=== PATIENT | male | born 1940 | race Caucasian/White ===

== ENCOUNTER 2016-11-07 21:59 | Inpatient (IN) | payer MEDICAID, MEDICARE ==
--- NOTE | 2016-11-07 22:12 | ED Physician Chart ---
Chief Complaint/HPI - Patient Information Date Seen:: 11/07/16 Time Seen:: 22:00 Chief Complaint:: increased agitation and confusion History of Present Illness:: Patient has been exhibiting increased agitation and increased confusion and his [facility] nursing facility. Allergies:: Allergies Allergy/AdvReac Type Severity Reaction Status Date / Time No Known Allergies Allergy Verified 12/15/15 21:43 Historian:: EMS Review:: Nurse's Note Reviewed, Transfer documents Reviewed Review of Systems - Review of Systems General/Constitutional: No fever, No chills Skin: No skin lesions Head: No headache Eyes: No loss of vision ENT: No earache Neck: No neck pain, No swelling Cardio Vascular: No chest pain, No palpitations Pulmonary: No SOB GI: No nausea, No vomiting, No diarrhea G/U: No dysuria Musculoskeletal: No bone or joint pain Endocrine: No polyuria, No polydipsia Psychiatric: Prior psych history Hematopoietic: No bruising Allergic/Immuno: No urticaria Neurological: No syncope, No headache Past Medical History - Past Medical History Past Medical History: DM, Dyslipidemia, PUD/GERD, Other (benign prostatic hypertrophy; anicteric renal disease; glaucoma; hypercholesterolemia; ecchymosis ; arthritis; status post urinary tract infection; status post prostatitis; dementia; Alzheimer's disease; right above-knee amputation; status post pneumonia) Family History: Other (unavailable) Social History: Care Facility Surgical History: other (right above-knee amputation) Psychiatricy History: Dementia, Other (Alzheimer's disease) Medication: Reviewed Family Medical History - Family Member Mother History Unknown: Yes Ethnicity: Unknown Living Status: Unknown Hx Family Cancer: No Hx Family Coronary Artery Disease: No Hx Family Congestive Heart Failure: No Hx Family Hypertension: No Hx Family Stroke: No Hx Family Diabetes: No Hx Family Seizures: No Hx Family Dementia: No Hx Family AIDS: No Hx Family HIV: No Hx Family COPD: No Hx Family Hepatitis: No Hx Family Psychiatric Problems: No Hx Family Tuberculosis: No Physical Exam - Physical Examination General/Constitutional: Alert Other Gen/Cons comments:: Chronically ill-appearing Head: Atraumatic Eyes: Lids, conjuctiva normal, PERRL Skin: Nl inspection ENMT: External ears, nose nl, TM canals nl, Nasal exam nl Other ENMT comments:: Edentulous Neck: No nuchal rigidity, No bruit Respiratory: Nl effort/Exclusion, Clear to Auscultation, No Wheeze/Rhonchi/Rales Cardio Vascular: RRR GI: No tenderness/rebounding/guarding Extremities: Normal digits & nails Other Extremities comments:: Right above-knee amputation Other Neuro/Psych comments:: Drooping right corner of mouth Misc: Normal back Labs/Radiology/EKG Results - EKG Interpretations Rate & Rhythm: normal sinus rhythm with a rate of 88 [place]: normal Comments:: Low voltage ED Septic Shock - . Is Septic Shock (SBP<90, OR Lactate>4 mmol\L) present?: No Reassessment (Disposition) - Reassessment Reassessment Condition:: Unchanged - Diagnosis Diagnosis:: Dementia with agitation - Patient Disposition Admitted to:: [facility] Admitting Medical Physician:: Stephane Hanley Admitting Psych Physician:: Emily Urena Condition at Disposition:: Stable, Unchanged
[2016-11-07 22:21] LABS: % BASOPHILS 1.6 % (0.0-2.0); % EOSINOPHILS 2.2 % (0.0-5.0); % LYMPHOCYTES 16.1 % (20.0-50.0); % MONOCYTES 3.4 % (2.0-10.0); % NEUTROPHILS 76.7 % (40.0-80.0); HEMATOCRIT 38.3 % (39.0-49.0); HEMOGLOBIN 12.8 gm/dL (12.6-17.4); MEAN CELL VOLUME 84.1 fl (80-99); MEAN CORPUSCULAR HEMOGLOBIN 28.1 pg (27.0-31.0); MEAN CORPUSCULAR HGB CONC 33.5 pg (28.0-36.0); MEAN PLATELET VOLUME 8.4 fl; NEUTROPHILE ABSOLUTE 7.6 Th/cmm (1.8-8.0); RED BLOOD COUNT 4.56 Mil/cmm (3.80-5.80); WHITE BLOOD COUNT 9.9 Th/cmm (4.8-10.8)
[2016-11-07 22:39] LABS: ALKALINE PHOSPHATASE 83 U/L (34-104); ANION GAP 11.4 (7.0-16.0); BILIRUBIN,TOTAL 0.3 mg/dL (0.3-1.0); BUN - UREA NITROGEN 33 mg/dL (7-25); BUN/CREATININE RATIO 23.6; CALCIUM SERUM 9.7 mg/dL (8.6-10.3); CARBON DIOXIDE 24.7 mEq/L (21.0-31.0); CHLORIDE 104 mEq/L (98-107); CHOLESTEROL 125 mg/dL (<200); CREATININE - SERUM 1.4 mg/dL (0.7-1.3); GLUCOSE 133 mg/dL (70-105); POTASSIUM SERUM 4.1 mEq/L (3.5-5.1); SGOT 18 U/L (13-39); SGPT/ALT 16 U/L (7-52); SODIUM SERUM 136 mEq/L (136-145); TRIGLYCERIDES 174 mg/dL (<150)
[2016-11-07 22:43] LABS: PLATELET COUNT 224 Th/cmm (150-400)
[2016-11-08 01:11] VITALS: BP 135/77
[2016-11-08] MEDS ORDERED: Magnesium Hydroxide (MOM) 30 mL UDC PO PRN (01:14)
[2016-11-08] MEDS ORDERED: Fleet Enema 135 mL RC PRN (01:14)
[2016-11-08] MEDS: INSULIN ASPART SLIDING SCALE 100 UNITS/ML UNIT SUBQ SCH ×4 (06:37→20:45)
[2016-11-08] MEDS: Aspirin 325 mg EC PO SCH (08:11)
[2016-11-08] MEDS: Multivitamin w/ Minerals Tab PO SCH (08:11)
[2016-11-08] MEDS: Insulin Detemir 100 units/mL 10mL Vial SUBQ SCH (08:12)
--- NOTE | 2016-11-08 10:45 | Psychosocial Evaluation ---
DATE OF SERVICE: 11/07/2016 IDENTIFYING DATA: The patient is a 76-year-old male, resident of [facility]. Information obtained by directly interviewing the patient as well as reviewing the admission papers, disposition in hospitalization. The patient is admitted here on a voluntary basis in view of his acute agitation, confusion and aggressive behavior. HISTORY OF PRESENT ILLNESS: This is the first psychiatric hospitalization to this hospital. The patient is reported to have been at [place] and has been having deterioration in the care. The patient is reported to have been getting easily agitated. The patient even in here is trying to get out of the bed and has been getting easily agitated when the staff are trying to help him. The patient has been diagnosed to have multiple medical problems such as osteoarthritis and muscle weakness, dysphagia, urinary tract infection and spastic hemiplegia and patient at this time has not been able to contract for safety. The patient also has a history of diabetes mellitus and essential hypertension and ____ affect. The patient at this time is presenting with aggressive behavior. PAST PSYCHIATRIC HISTORY: Please refer to the above. MEDICAL HISTORY: Physical examination is requested by Dr. Hanley. SUBSTANCE ABUSE HISTORY: None. PHYSICAL OR SEXUAL ABUSE HISTORY: None. LEGAL PROBLEMS: None at this time. STRENGTH AND ASSETS: The patient is motivated. MENTAL STATUS EXAMINATION: The patient is a 76-year-old, looking his stated age, superficially cooperative. Eye contact is poor. Mood is noted to be irritable. Affect is constricted. Insight and judgment at this time are noted to be very much impaired. Impulse control seems to be poor. Coping skills are noted to be poor. The patient has been having difficult time to cope with the stress. The patient has been getting easily agitated and trying to sleep out of the bed and patient is getting easily agitated with the staff when they are trying to help him to re-position. The patient is paranoid at this time, but denies any command hallucinations. Insight and judgment at this time are noted to be very much impaired. Impulse control seems to be limited. The patient has short and prison memory deficit. Attention span and concentration are noted to be poor at this time. The patient's behavior is strictly a danger to self and others. DIAGNOSTIC IMPRESSION: AXIS I: 1. Psychotic disorder, not otherwise specified. 2. Dementia and behavioral change, secondary trait. AXIS II: None. AXIS III: As per Dr. Hanley. IMMEDIATE TREATMENT PLAN: The patient is going to be observed on inpatient unit, provided with supportive therapy and the patient is going to be closely monitored. Once stabilized, the patient is going to be discharged to self to be followed up on an outpatient basis. JOB# [id number]
--- NOTE | 2016-11-08 10:45 | Internal Medicine Prog Note ---
Internal Medicine Subjective - Subjective Service Date: 11/08/16 ([id number]) Internal Medicine Objective - Results Result Diagrams: 11/07/16 22:13 11/07/16 22:13 Recent Labs: Laboratory Last Values WBC 9.9 Th/cmm (4.8-10.8) 11/07/16 22:13 RBC 4.56 Mil/cmm (3.80-5.80) 11/07/16 22:13 Hgb 12.8 gm/dL (12.6-17.4) 11/07/16 22:13 Hct 38.3 % (39.0-49.0) L 11/07/16 22:13 MCV 84.1 fl (80-99) 11/07/16 22:13 MCH 28.1 pg (27.0-31.0) 11/07/16 22:13 MCHC Differential 33.5 pg (28.0-36.0) 11/07/16 22:13 RDW 13.0 % (11.5-20.0) 11/07/16 22:13 Plt Count 224 Th/cmm (150-400) D 11/07/16 22:13 MPV 8.4 fl 11/07/16 22:13 Neutrophils % 76.7 % (40.0-80.0) 11/07/16 22:13 Lymphocytes % 16.1 % (20.0-50.0) L 11/07/16 22:13 Monocytes % 3.4 % (2.0-10.0) 11/07/16 22:13 Eosinophils % 2.2 % (0.0-5.0) 11/07/16 22:13 Basophils % 1.6 % (0.0-2.0) 11/07/16 22:13 Sodium 136 mEq/L (136-145) 11/07/16 22:13 Potassium 4.1 mEq/L (3.5-5.1) 11/07/16 22:13 Chloride 104 mEq/L (98-107) 11/07/16 22:13 Carbon Dioxide 24.7 mEq/L (21.0-31.0) 11/07/16 22:13 Anion Gap 11.4 (7.0-16.0) 11/07/16 22:13 BUN 33 mg/dL (7-25) H 11/07/16 22:13 Creatinine 1.4 mg/dL (0.7-1.3) H 11/07/16 22:13 Est GFR ( Amer) TNP 11/07/16 22:13 Est GFR (Non-Af Amer) TNP 11/07/16 22:13 BUN/Creatinine Ratio 23.6 11/07/16 22:13 Glucose 133 mg/dL (70-105) H 11/07/16 22:13 Calcium 9.7 mg/dL (8.6-10.3) 11/07/16 22:13 Total Bilirubin 0.3 mg/dL (0.3-1.0) 11/07/16 22:13 AST 18 U/L (13-39) 11/07/16 22:13 ALT 16 U/L (7-52) 11/07/16 22:13 Alkaline Phosphatase 83 U/L (34-104) 11/07/16 22:13 Total Protein 7.8 gm/dL (6.0-8.3) 11/07/16 22:13 Albumin 3.9 gm/dL (4.2-5.5) L 11/07/16 22:13 Globulin 3.9 gm/dL 11/07/16 22:13 Albumin/Globulin Ratio 1.0 (1.0-1.8) 11/07/16 22:13 Triglycerides 174 mg/dL (<150) H 11/07/16 22:13 Cholesterol 125 mg/dL (<200) 11/07/16 22:13 LDL Cholesterol Direct 67 mg/dL (75-193) L 11/07/16 22:13 HDL Cholesterol 36 mg/dL (23-92) 11/07/16 22:13 TSH 1.54 uIU/ml (0.34-5.60) 11/07/16 22:13 - Physical Exam Vitals and I&O: Vital Signs Temp 97.8 F 11/08/16 06:55 Pulse 75 11/08/16 06:55 Resp 20 11/08/16 06:55 BP 131/75 11/08/16 08:11 Pulse Ox 98 11/08/16 06:55 Intake & Output 11/07/16 11/08/16 11/08/16 18:59 06:59 18:59 Intake Total 120 Balance 120 Intake: Oral 120 Other: # Voids 3 Active Medications: Current Medications Acetaminophen (Tylenol) 650 mg PO Q4HR PRN PRN Reason: Pain or Fever >101 Stop: 01/07/17 01:13 Aspirin (Ecotrin) 325 mg PO DAILY [facility] Stop: 01/07/17 08:59 Last Admin: 11/08/16 08:11 Dose: 325 mg Bisacodyl (Dulcolax 10 Mg Supp) 10 mg RC DAILY PRN PRN Reason: Constipation Stop: 01/07/17 08:59 Docusate Sodium (Colace) 100 mg PO DAILY [facility] Stop: 01/07/17 08:59 Last Admin: 11/08/16 08:11 Dose: 100 mg Famotidine (Pepcid) 20 mg PO DAILY [facility] Stop: 01/07/17 08:59 Last Admin: 11/08/16 08:11 Dose: 20 mg Furosemide (Lasix) 40 mg PO DAILY [facility] Stop: 01/07/17 08:59 Last Admin: 11/08/16 08:11 Dose: 40 mg Insulin Aspart (Novolog Insulin Sliding Scale) 0 units SUBQ ACHS [facility] PRN Reason: Protocol Stop: 01/07/17 07:29 Last Admin: 11/08/16 06:37 Dose: Not Given Insulin Detemir (Levemir Insulin) 8 units SUBQ DAILY [facility] Stop: 01/07/17 08:59 Last Admin: 11/08/16 08:12 Dose: 8 unit Latanoprost (Xalatan 0.005% Ophth Soln) 1 drop EACH EYE HS [facility] Stop: 01/07/17 20:59 Lorazepam (Ativan) 0.5 mg PO Q8HR PRN; Protocol PRN Reason: Agitation/ anxiety Stop: 01/07/17 01:13 Magnesium Hydroxide (Milk Of Magnesia) 30 ml PO DAILY PRN PRN Reason: Constipation Stop: 01/07/17 01:13 Miscellaneous (Dronedarone Hcl [Multaq]) 400 mg PO BID [facility] Stop: 01/07/17 08:59 Psyllium Hydrophilic Mucilloid (Metamucil) 1 pkt PO BID [facility] Stop: 01/07/17 08:59 Last Admin: 11/08/16 08:12 Dose: 1 pkt Senna (Senna) 8.6 mg PO DAILY [facility] Stop: 01/07/17 08:59 Last Admin: 11/08/16 08:11 Dose: 8.6 mg Sodium Phosphate (Fleet Enema) 135 ml RC Q48H PRN PRN Reason: Constipation Stop: 01/07/17 01:13 Zolpidem Tartrate (Ambien) 5 mg PO HS PRN PRN Reason: Insomnia Stop: 01/07/17 01:11 Last Admin: 11/08/16 02:10 Dose: 5 mg - Procedures Procedures: Procedures Procedure Code Date OTHER GROUP THERAPY 94.44 10/04/14 Internal Medicine Assmt/Plan - Assessment Assessment: PSYCHOSIS CKD DM2 MUSCLE WEAKNESS ENLARGED PROSTATE HYPERLIPIDEMIA
--- NOTE | 2016-11-08 11:08 | History & Physical ---
ADMIT DATE: 11/08/2016 CHIEF COMPLAINT: Increased agitation and confusion. HISTORY OF PRESENT ILLNESS: This is a 76-year-old male who is a resident of [facility] who is brought here to [facility] for increased agitation and increased confusion at the nursing facility. For this reason, the patient is now admitted to the Geropsych Unit. PAST MEDICAL HISTORY: CKD, muscle weakness, dysphagia, enlarged prostate, type 2 diabetes, hyperlipidemia. SOCIAL HISTORY: The patient is a snf resident, requiring 24-hour nursing care. PSYCHIATRIC HISTORY: Dementia. FAMILY HISTORY: Noncontributory. REVIEW OF SYSTEMS: Unable to obtain due to patient's mental status. PHYSICAL EXAMINATION: GENERAL: The patient is awake, confused, in no apparent distress. VITAL SIGNS: Temperature 97.8, heart rate 75, blood pressure 131/75, respirations 20, O2 98%. HEENT: Normocephalic, atraumatic. NECK: Supple. No mass. LUNGS: Clear bilaterally. CARDIOVASCULAR: Regular rate and rhythm. ABDOMEN: Soft, nontender. LABORATORY DATA: WBC 9.9, H and H 12.8 and 38.3, platelets 225. Sodium 136, potassium 4.1, chloride 104, BUN 33, creatinine 1.4, albumin 3.9. ASSESSMENT: Psychosis, dementia, hyperlipidemia, hypertension, enlarged prostate, COPD, type 2 diabetes, glaucoma, osteoarthritis. PLAN: The patient to be admitted to the Geropsych Unit. We will monitor the patient's glucose level and continue the patient's blood pressure medications. Continue present management. [facility]# [id number]
[2016-11-09] MEDS: INSULIN ASPART SLIDING SCALE 100 UNITS/ML UNIT SUBQ SCH ×4 (06:39→22:13)
[2016-11-09] MEDS: Aspirin 325 mg EC PO SCH (09:19)
[2016-11-09] MEDS: Multivitamin w/ Minerals Tab PO SCH (09:27)
[2016-11-09] MEDS: Insulin Detemir 100 units/mL 10mL Vial SUBQ SCH (09:27)
--- NOTE | 2016-11-09 15:01 | Internal Medicine Prog Note ---
Internal Medicine Subjective - Subjective Patient seen and examined:: with staff, chart reviewed Patient is:: asleep, non-verbal, non-interactive, eyes closed, in bed, confused Per staff patient has:: no adverse event, no episodes of fall, noncompliant, confused Internal Medicine Objective - Results Result Diagrams: 11/07/16 22:13 11/07/16 22:13 Recent Labs: Laboratory Last Values WBC 9.9 Th/cmm (4.8-10.8) 11/07/16 22:13 RBC 4.56 Mil/cmm (3.80-5.80) 11/07/16 22:13 Hgb 12.8 gm/dL (12.6-17.4) 11/07/16 22:13 Hct 38.3 % (39.0-49.0) L 11/07/16 22:13 MCV 84.1 fl (80-99) 11/07/16 22:13 MCH 28.1 pg (27.0-31.0) 11/07/16 22:13 MCHC Differential 33.5 pg (28.0-36.0) 11/07/16 22:13 RDW 13.0 % (11.5-20.0) 11/07/16 22:13 Plt Count 224 Th/cmm (150-400) D 11/07/16 22:13 MPV 8.4 fl 11/07/16 22:13 Neutrophils % 76.7 % (40.0-80.0) 11/07/16 22:13 Lymphocytes % 16.1 % (20.0-50.0) L 11/07/16 22:13 Monocytes % 3.4 % (2.0-10.0) 11/07/16 22:13 Eosinophils % 2.2 % (0.0-5.0) 11/07/16 22:13 Basophils % 1.6 % (0.0-2.0) 11/07/16 22:13 Sodium 136 mEq/L (136-145) 11/07/16 22:13 Potassium 4.1 mEq/L (3.5-5.1) 11/07/16 22:13 Chloride 104 mEq/L (98-107) 11/07/16 22:13 Carbon Dioxide 24.7 mEq/L (21.0-31.0) 11/07/16 22:13 Anion Gap 11.4 (7.0-16.0) 11/07/16 22:13 BUN 33 mg/dL (7-25) H 11/07/16 22:13 Creatinine 1.4 mg/dL (0.7-1.3) H 11/07/16 22:13 Est GFR ( Amer) TNP 11/07/16 22:13 Est GFR (Non-Af Amer) TNP 11/07/16 22:13 BUN/Creatinine Ratio 23.6 11/07/16 22:13 Glucose 133 mg/dL (70-105) H 11/07/16 22:13 Calcium 9.7 mg/dL (8.6-10.3) 11/07/16 22:13 Total Bilirubin 0.3 mg/dL (0.3-1.0) 11/07/16 22:13 AST 18 U/L (13-39) 11/07/16 22:13 ALT 16 U/L (7-52) 11/07/16 22:13 Alkaline Phosphatase 83 U/L (34-104) 11/07/16 22:13 Total Protein 7.8 gm/dL (6.0-8.3) 11/07/16 22:13 Albumin 3.9 gm/dL (4.2-5.5) L 11/07/16 22:13 Globulin 3.9 gm/dL 11/07/16 22:13 Albumin/Globulin Ratio 1.0 (1.0-1.8) 11/07/16 22:13 Triglycerides 174 mg/dL (<150) H 11/07/16 22:13 Cholesterol 125 mg/dL (<200) 11/07/16 22:13 LDL Cholesterol Direct 67 mg/dL (75-193) L 11/07/16 22:13 HDL Cholesterol 36 mg/dL (23-92) 11/07/16 22:13 TSH 1.54 uIU/ml (0.34-5.60) 11/07/16 22:13 RPR NONREACTIVE (NONREACTIVE) 11/07/16 22:13 - Physical Exam Vitals and I&O: Vital Signs Temp 97.4 F 11/09/16 06:05 Pulse 61 11/09/16 13:29 Resp 20 11/09/16 13:29 BP 111/61 11/09/16 09:19 Pulse Ox 97 11/09/16 06:05 Intake & Output 11/08/16 11/09/16 11/09/16 18:59 06:59 18:59 Intake Total 120 Balance 120 Intake: Oral 120 Other: # Voids 3 1 # Bowel Movements 1 Active Medications: Current Medications Acetaminophen (Tylenol) 650 mg PO Q4HR PRN PRN Reason: Pain or Fever >101 Stop: 01/07/17 01:13 Aspirin (Ecotrin) 325 mg PO DAILY [facility] Stop: 01/07/17 08:59 Last Admin: 11/09/16 09:19 Dose: 325 mg Bisacodyl (Dulcolax 10 Mg Supp) 10 mg RC DAILY PRN PRN Reason: Constipation Stop: 01/07/17 08:59 Docusate Sodium (Colace) 100 mg PO DAILY [facility] Stop: 01/07/17 08:59 Last Admin: 11/09/16 09:27 Dose: 100 mg Famotidine (Pepcid) 20 mg PO DAILY [facility] Stop: 01/07/17 08:59 Last Admin: 11/09/16 09:26 Dose: 20 mg Furosemide (Lasix) 40 mg PO DAILY [facility] Stop: 01/07/17 08:59 Last Admin: 11/09/16 09:19 Dose: Not Given Insulin Aspart (Novolog Insulin Sliding Scale) 0 units SUBQ ACHS [facility] PRN Reason: Protocol Stop: 01/07/17 07:29 Last Admin: 11/09/16 12:07 Dose: 2 units Insulin Detemir (Levemir Insulin) 8 units SUBQ DAILY [facility] Stop: 01/07/17 08:59 Last Admin: 11/09/16 09:27 Dose: 8 unit Latanoprost (Xalatan 0.005% Ophth Soln) 1 drop EACH EYE HS [facility] Stop: 01/07/17 20:59 Last Admin: 11/08/16 21:08 Dose: 1 drop Lorazepam (Ativan) 0.5 mg PO Q8HR PRN; Protocol PRN Reason: Agitation/ anxiety Stop: 01/07/17 01:13 Magnesium Hydroxide (Milk Of Magnesia) 30 ml PO DAILY PRN PRN Reason: Constipation Stop: 01/07/17 01:13 Miscellaneous (Dronedarone Hcl [Multaq]) 400 mg PO BID [facility] Stop: 01/07/17 08:59 Psyllium Hydrophilic Mucilloid (Metamucil) 1 pkt PO BID [facility] Stop: 01/07/17 08:59 Last Admin: 11/09/16 09:19 Dose: 1 pkt Quetiapine Fumarate (Seroquel) 12.5 mg PO HS [facility] PRN Reason: Protocol Stop: 01/08/17 20:59 Senna (Senna) 8.6 mg PO DAILY [facility] Stop: 01/07/17 08:59 Last Admin: 11/09/16 09:19 Dose: 8.6 mg Sodium Phosphate (Fleet Enema) 135 ml RC Q48H PRN PRN Reason: Constipation Stop: 01/07/17 01:13 Zolpidem Tartrate (Ambien) 5 mg PO HS PRN PRN Reason: Insomnia Stop: 01/07/17 01:11 Last Admin: 11/08/16 02:10 Dose: 5 mg General: demented HEENT: NC/AT, PERRLA, EOMI Neck: Supple, No JVD Lungs: CTAB Cardiovascular: RRR, Normal S1, Normal S2, without murmur Abdomen: soft, non-tender, positive bowel sound Extremities: contracture Neurological: no change, disorganized - Procedures Procedures: Procedures Procedure Code Date OTHER GROUP THERAPY 94.44 10/04/14 Internal Medicine Assmt/Plan - Assessment Assessment: PSYCHOSIS CKD DM2 MUSCLE WEAKNESS ENLARGED PROSTATE HYPERLIPIDEMIA - Plan Plan: cont on ada iss fall precaution nutritional support cpm labs noted jean claude fuentes
--- NOTE | 2016-11-09 16:10 | Progress Notes ---
DATE: 11/09/2016 SUBJECTIVE: Staff was spoken to. The patient is interviewed. Mood is noted to be irritable. Affect is constricted. The patient's insight and judgment are noted to be still impaired. Impulse control seems to be limited. The patient has been trying to sleep out of the bed. The patient needs to be repositioned on many occasions. The patient has been given the lorazepam on a p.r.n. basis yesterday. The patient at this time is not able to contract for safety in view of his impulsivity, it is decided to place the patient on low dose of Seroquel and follow the patient up. JOB# [id number]
--- NOTE | 2016-11-09 21:50 | Admit Criteria Form ---
Admit Criteria Forms - Admit Criteria Diagnosis: PSYCHIATRIC DISORDERS (Place 'X' for any and all applicable criteria): Ongoing inpatient care may be needed for 1 or more of the following(1)(2)(3)(4)( 6)(7)(8): [ ]I. Danger to self or others not manageable at lower level of care. [ ]II. Grave disability (eg, inability to perform self care necessary at lower level of care) [ X]III. Agitation or inappropriate behavior interfering with care for primary condition (eg, attempting to discontinue lines or drains prematurely, unable to cooperate with respiratory care) [ ]IV. Severe disability or disorder indicated by ALL of the following: [ ]a) Severe behavioral health disorder-related symptoms or condition indicated by 1 or more of the following: [ ]i) Severe problem with cognition, memory, judgment, or impulse control [ ]ii) Severe clinical manifestations (eg, hallucinations, delusions, other acute psychotic symptoms, renee, extreme agitation or anxiety) [ ]b) Patient management at lower level of care is not feasible until acute intervention or modification is initiated. Extended stay beyond goal length of stay for the primary condition may be needed until ALLof the following are present(1)(2)(3)(4)(722)(23): [ ]a) Danger to self or others is absent or manageable at lower level of care [ ]b) Behavior crisis management, including physical or chemical restraints, is required and is not available at a lower level of care. [ ]c) Behavioral symptoms (e.g., agitation, somnolence, inappropriate behavior) are present, and are not manageable at a lower level of care. [ ]d) Patient cannot understand follow-up treatment and crisis plan. [ ]e) Provider and supports are sufficiently available at lower level of care. [ ]f) Patient can participate (e.g., verify absence of plan for harm) and is in needed of monitoring. The original [facility] [employer] content created by [facility] [employer] has been revised. The portions of the content which have been revised are identified through the use of italic text or in bold, and [facility] [employer] has neither reviewed nor approved the modified material. All other unmodified content is copyright [facility] [employer]. Please see references footnoted in the original [facility] edition 2017 Admit Criteria Met?: Yes
[2016-11-10] MEDS: INSULIN ASPART SLIDING SCALE 100 UNITS/ML UNIT SUBQ SCH ×4 (06:49→20:49)
[2016-11-10] MEDS: Insulin Detemir 100 units/mL 10mL Vial SUBQ SCH (08:27)
[2016-11-10] MEDS: Multivitamin w/ Minerals Tab PO SCH (08:27)
[2016-11-10] MEDS: Aspirin 325 mg EC PO SCH (08:27)
--- NOTE | 2016-11-10 11:50 | Internal Medicine Prog Note ---
Internal Medicine Subjective - Subjective Patient seen and examined:: with staff, chart reviewed Patient is:: asleep, non-verbal, non-interactive, eyes closed, in bed, confused Per staff patient has:: no adverse event, no episodes of fall, noncompliant, confused Internal Medicine Objective - Results Result Diagrams: 11/07/16 22:13 11/07/16 22:13 Recent Labs: Laboratory Last Values WBC 9.9 Th/cmm (4.8-10.8) 11/07/16 22:13 RBC 4.56 Mil/cmm (3.80-5.80) 11/07/16 22:13 Hgb 12.8 gm/dL (12.6-17.4) 11/07/16 22:13 Hct 38.3 % (39.0-49.0) L 11/07/16 22:13 MCV 84.1 fl (80-99) 11/07/16 22:13 MCH 28.1 pg (27.0-31.0) 11/07/16 22:13 MCHC Differential 33.5 pg (28.0-36.0) 11/07/16 22:13 RDW 13.0 % (11.5-20.0) 11/07/16 22:13 Plt Count 224 Th/cmm (150-400) D 11/07/16 22:13 MPV 8.4 fl 11/07/16 22:13 Neutrophils % 76.7 % (40.0-80.0) 11/07/16 22:13 Lymphocytes % 16.1 % (20.0-50.0) L 11/07/16 22:13 Monocytes % 3.4 % (2.0-10.0) 11/07/16 22:13 Eosinophils % 2.2 % (0.0-5.0) 11/07/16 22:13 Basophils % 1.6 % (0.0-2.0) 11/07/16 22:13 Sodium 136 mEq/L (136-145) 11/07/16 22:13 Potassium 4.1 mEq/L (3.5-5.1) 11/07/16 22:13 Chloride 104 mEq/L (98-107) 11/07/16 22:13 Carbon Dioxide 24.7 mEq/L (21.0-31.0) 11/07/16 22:13 Anion Gap 11.4 (7.0-16.0) 11/07/16 22:13 BUN 33 mg/dL (7-25) H 11/07/16 22:13 Creatinine 1.4 mg/dL (0.7-1.3) H 11/07/16 22:13 Est GFR ( Amer) TNP 11/07/16 22:13 Est GFR (Non-Af Amer) TNP 11/07/16 22:13 BUN/Creatinine Ratio 23.6 11/07/16 22:13 Glucose 133 mg/dL (70-105) H 11/07/16 22:13 POC Glucose 72 MG/DL (70 - 105) 11/10/16 06:42 Calcium 9.7 mg/dL (8.6-10.3) 11/07/16 22:13 Total Bilirubin 0.3 mg/dL (0.3-1.0) 11/07/16 22:13 AST 18 U/L (13-39) 11/07/16 22:13 ALT 16 U/L (7-52) 11/07/16 22:13 Alkaline Phosphatase 83 U/L (34-104) 11/07/16 22:13 Total Protein 7.8 gm/dL (6.0-8.3) 11/07/16 22:13 Albumin 3.9 gm/dL (4.2-5.5) L 11/07/16 22:13 Globulin 3.9 gm/dL 11/07/16 22:13 Albumin/Globulin Ratio 1.0 (1.0-1.8) 11/07/16 22:13 Triglycerides 174 mg/dL (<150) H 11/07/16 22:13 Cholesterol 125 mg/dL (<200) 11/07/16 22:13 LDL Cholesterol Direct 67 mg/dL (75-193) L 11/07/16 22:13 HDL Cholesterol 36 mg/dL (23-92) 11/07/16 22:13 TSH 1.54 uIU/ml (0.34-5.60) 11/07/16 22:13 RPR NONREACTIVE (NONREACTIVE) 11/07/16 22:13 - Physical Exam Vitals and I&O: Vital Signs Temp 98 F 11/10/16 06:38 Pulse 72 11/10/16 11:02 Resp 18 11/10/16 11:02 BP 112/66 11/10/16 08:27 Pulse Ox 98 11/10/16 06:38 Intake & Output 11/09/16 11/10/16 11/10/16 18:59 06:59 18:59 Intake Total 120 120 Balance 120 120 Intake: Oral 120 120 Other: # Voids 3 2 Active Medications: Current Medications Acetaminophen (Tylenol) 650 mg PO Q4HR PRN PRN Reason: Pain or Fever >101 Stop: 01/07/17 01:13 Aspirin (Ecotrin) 325 mg PO DAILY NOLAN Stop: 01/07/17 08:59 Last Admin: 11/10/16 08:27 Dose: 325 mg Bisacodyl (Dulcolax 10 Mg Supp) 10 mg RC DAILY PRN PRN Reason: Constipation Stop: 01/07/17 08:59 Docusate Sodium (Colace) 100 mg PO DAILY NOLAN Stop: 01/07/17 08:59 Last Admin: 11/10/16 08:27 Dose: 100 mg Famotidine (Pepcid) 20 mg PO DAILY NOLAN Stop: 01/07/17 08:59 Last Admin: 11/10/16 08:27 Dose: 20 mg Furosemide (Lasix) 40 mg PO DAILY NOLAN Stop: 01/07/17 08:59 Last Admin: 11/10/16 08:27 Dose: 40 mg Insulin Aspart (Novolog Insulin Sliding Scale) 0 units SUBQ ACHS NOLAN PRN Reason: Protocol Stop: 01/07/17 07:29 Last Admin: 11/10/16 06:49 Dose: Not Given Insulin Detemir (Levemir Insulin) 8 units SUBQ DAILY NOLAN Stop: 01/07/17 08:59 Last Admin: 11/10/16 08:27 Dose: 8 unit Latanoprost (Xalatan 0.005% Ophth Soln) 1 drop EACH EYE HS NOLAN Stop: 01/07/17 20:59 Last Admin: 11/09/16 22:03 Dose: 1 drop Lorazepam (Ativan) 0.5 mg PO Q8HR PRN; Protocol PRN Reason: Agitation/ anxiety Stop: 01/07/17 01:13 Magnesium Hydroxide (Milk Of Magnesia) 30 ml PO DAILY PRN PRN Reason: Constipation Stop: 01/07/17 01:13 Miscellaneous (Dronedarone Hcl [Multaq]) 400 mg PO BID [facility] Stop: 01/07/17 08:59 Psyllium Hydrophilic Mucilloid (Metamucil) 1 pkt PO BID NOLAN Stop: 01/07/17 08:59 Last Admin: 11/10/16 08:28 Dose: 1 pkt Quetiapine Fumarate (Seroquel) 12.5 mg PO HS NOLAN PRN Reason: Protocol Stop: 01/08/17 20:59 Last Admin: 11/09/16 22:03 Dose: 12.5 mg Senna (Senna) 8.6 mg PO DAILY NOLAN Stop: 01/07/17 08:59 Last Admin: 11/10/16 08:27 Dose: 8.6 mg Sodium Phosphate (Fleet Enema) 135 ml RC Q48H PRN PRN Reason: Constipation Stop: 01/07/17 01:13 Zolpidem Tartrate (Ambien) 5 mg PO HS PRN PRN Reason: Insomnia Stop: 01/07/17 01:11 Last Admin: 11/08/16 02:10 Dose: 5 mg General: demented HEENT: NC/AT, PERRLA, EOMI Neck: Supple, No JVD Lungs: CTAB Cardiovascular: RRR, Normal S1, Normal S2, without murmur Abdomen: soft, non-tender, positive bowel sound Extremities: contracture Neurological: no change, disorganized - Procedures Procedures: Procedures Procedure Code Date OTHER GROUP THERAPY 94.44 10/04/14 Internal Medicine Assmt/Plan - Assessment Assessment: PSYCHOSIS CKD DM2 MUSCLE WEAKNESS ENLARGED PROSTATE HYPERLIPIDEMIA - Plan Plan: cont on ada iss fall precaution nutritional support cpm labs noted jean claude fuentes
--- NOTE | 2016-11-10 21:13 | Progress Notes ---
DATE: 11/10/2016 SUBJECTIVE: Staff was spoken to. The patient is interviewed. Mood is noted to be irritable. Affect is constricted. Coping skills are noted to be poor. The patient is still trying to slide out of the bed. Insight and judgment are very much impaired. The patient is getting easily agitated. The patient has been having difficult time to cope with the stress. The patient is currently on Seroquel 12.5 mg. PLAN: To continue the patient with current medication. I encouraged the patient to verbalize the concerns rather than to act out. JOB# [id number]
[2016-11-11] MEDS: INSULIN ASPART SLIDING SCALE 100 UNITS/ML UNIT SUBQ SCH ×4 (07:54→21:56)
[2016-11-11] MEDS: Insulin Detemir 100 units/mL 10mL Vial SUBQ SCH (09:03)
[2016-11-11] MEDS: Multivitamin w/ Minerals Tab PO SCH (09:03)
[2016-11-11] MEDS: Aspirin 325 mg EC PO SCH (09:03)
--- NOTE | 2016-11-11 12:06 | Internal Medicine Prog Note ---
Internal Medicine Subjective - Subjective Patient seen and examined:: with staff, chart reviewed Patient is:: asleep, non-verbal, non-interactive, eyes closed, in bed, confused Per staff patient has:: no adverse event, no episodes of fall, noncompliant, confused Internal Medicine Objective - Results Result Diagrams: 11/07/16 22:13 11/07/16 22:13 Recent Labs: Laboratory Last Values WBC 9.9 Th/cmm (4.8-10.8) 11/07/16 22:13 RBC 4.56 Mil/cmm (3.80-5.80) 11/07/16 22:13 Hgb 12.8 gm/dL (12.6-17.4) 11/07/16 22:13 Hct 38.3 % (39.0-49.0) L 11/07/16 22:13 MCV 84.1 fl (80-99) 11/07/16 22:13 MCH 28.1 pg (27.0-31.0) 11/07/16 22:13 MCHC Differential 33.5 pg (28.0-36.0) 11/07/16 22:13 RDW 13.0 % (11.5-20.0) 11/07/16 22:13 Plt Count 224 Th/cmm (150-400) D 11/07/16 22:13 MPV 8.4 fl 11/07/16 22:13 Neutrophils % 76.7 % (40.0-80.0) 11/07/16 22:13 Lymphocytes % 16.1 % (20.0-50.0) L 11/07/16 22:13 Monocytes % 3.4 % (2.0-10.0) 11/07/16 22:13 Eosinophils % 2.2 % (0.0-5.0) 11/07/16 22:13 Basophils % 1.6 % (0.0-2.0) 11/07/16 22:13 Sodium 136 mEq/L (136-145) 11/07/16 22:13 Potassium 4.1 mEq/L (3.5-5.1) 11/07/16 22:13 Chloride 104 mEq/L (98-107) 11/07/16 22:13 Carbon Dioxide 24.7 mEq/L (21.0-31.0) 11/07/16 22:13 Anion Gap 11.4 (7.0-16.0) 11/07/16 22:13 BUN 33 mg/dL (7-25) H 11/07/16 22:13 Creatinine 1.4 mg/dL (0.7-1.3) H 11/07/16 22:13 Est GFR ( Amer) TNP 11/07/16 22:13 Est GFR (Non-Af Amer) TNP 11/07/16 22:13 BUN/Creatinine Ratio 23.6 11/07/16 22:13 Glucose 133 mg/dL (70-105) H 11/07/16 22:13 POC Glucose 126 MG/DL (70 - 105) H 11/11/16 06:30 Calcium 9.7 mg/dL (8.6-10.3) 11/07/16 22:13 Total Bilirubin 0.3 mg/dL (0.3-1.0) 11/07/16 22:13 AST 18 U/L (13-39) 11/07/16 22:13 ALT 16 U/L (7-52) 11/07/16 22:13 Alkaline Phosphatase 83 U/L (34-104) 11/07/16 22:13 Total Protein 7.8 gm/dL (6.0-8.3) 11/07/16 22:13 Albumin 3.9 gm/dL (4.2-5.5) L 11/07/16 22:13 Globulin 3.9 gm/dL 11/07/16 22:13 Albumin/Globulin Ratio 1.0 (1.0-1.8) 11/07/16 22:13 Triglycerides 174 mg/dL (<150) H 11/07/16 22:13 Cholesterol 125 mg/dL (<200) 11/07/16 22:13 LDL Cholesterol Direct 67 mg/dL (75-193) L 11/07/16 22:13 HDL Cholesterol 36 mg/dL (23-92) 11/07/16 22:13 TSH 1.54 uIU/ml (0.34-5.60) 11/07/16 22:13 RPR NONREACTIVE (NONREACTIVE) 11/07/16 22:13 - Physical Exam Vitals and I&O: Vital Signs Temp 97.0 F 11/11/16 06:30 Pulse 88 11/11/16 06:30 Resp 17 11/11/16 06:30 BP 140/78 11/11/16 06:30 Pulse Ox 96 11/11/16 06:30 Intake & Output 11/10/16 11/11/16 11/11/16 18:59 06:59 18:59 Intake Total 720 Output Total 4 Balance 716 Intake: Oral 720 Output: Urine 4 Other: # Bowel Movements 2 Active Medications: Current Medications Acetaminophen (Tylenol) 650 mg PO Q4HR PRN PRN Reason: Pain or Fever >101 Stop: 01/07/17 01:13 Aspirin (Ecotrin) 325 mg PO DAILY NOLAN Stop: 01/07/17 08:59 Last Admin: 11/11/16 09:03 Dose: Not Given Bisacodyl (Dulcolax 10 Mg Supp) 10 mg RC DAILY PRN PRN Reason: Constipation Stop: 01/07/17 08:59 Docusate Sodium (Colace) 100 mg PO DAILY NOLAN Stop: 01/07/17 08:59 Last Admin: 11/11/16 09:03 Dose: Not Given Famotidine (Pepcid) 20 mg PO DAILY NOLNA Stop: 01/07/17 08:59 Last Admin: 11/11/16 09:03 Dose: Not Given Furosemide (Lasix) 40 mg PO DAILY NOLAN Stop: 01/07/17 08:59 Last Admin: 11/11/16 09:03 Dose: Not Given Insulin Aspart (Novolog Insulin Sliding Scale) 0 units SUBQ ACHS NOLAN PRN Reason: Protocol Stop: 01/07/17 07:29 Last Admin: 11/11/16 07:54 Dose: Not Given Insulin Detemir (Levemir Insulin) 8 units SUBQ DAILY NOLAN Stop: 01/07/17 08:59 Last Admin: 11/11/16 09:03 Dose: Not Given Latanoprost (Xalatan 0.005% Ophth Soln) 1 drop EACH EYE HS NOLAN Stop: 01/07/17 20:59 Last Admin: 11/10/16 20:44 Dose: 1 drop Lorazepam (Ativan) 0.5 mg PO Q8HR PRN; Protocol PRN Reason: Agitation/ anxiety Stop: 01/07/17 01:13 Magnesium Hydroxide (Milk Of Magnesia) 30 ml PO DAILY PRN PRN Reason: Constipation Stop: 01/07/17 01:13 Miscellaneous (Dronedarone Hcl [Multaq]) 400 mg PO BID [facility] Stop: 01/07/17 08:59 Psyllium Hydrophilic Mucilloid (Metamucil) 1 pkt PO BID NOLAN Stop: 01/07/17 08:59 Last Admin: 11/11/16 09:03 Dose: Not Given Quetiapine Fumarate (Seroquel) 12.5 mg PO HS NOLAN PRN Reason: Protocol Stop: 01/08/17 20:59 Last Admin: 11/10/16 20:43 Dose: 12.5 mg Senna (Senna) 8.6 mg PO DAILY NOLAN Stop: 01/07/17 08:59 Last Admin: 11/11/16 09:03 Dose: Not Given Sodium Phosphate (Fleet Enema) 135 ml RC Q48H PRN PRN Reason: Constipation Stop: 01/07/17 01:13 Zolpidem Tartrate (Ambien) 5 mg PO HS PRN PRN Reason: Insomnia Stop: 01/07/17 01:11 Last Admin: 11/08/16 02:10 Dose: 5 mg General: demented HEENT: NC/AT, PERRLA, EOMI Neck: Supple, No JVD Lungs: CTAB Cardiovascular: RRR, Normal S1, Normal S2, without murmur Abdomen: soft, non-tender, positive bowel sound Extremities: contracture Neurological: no change, disorganized - Procedures Procedures: Procedures Procedure Code Date OTHER GROUP THERAPY 94.44 10/04/14 Internal Medicine Assmt/Plan - Assessment Assessment: PSYCHOSIS CKD DM2 MUSCLE WEAKNESS ENLARGED PROSTATE HYPERLIPIDEMIA - Plan Plan: cont on ada iss fall precaution nutritional support cpm labs noted jean claude fuentes
--- NOTE | 2016-11-12 01:25 | Progress Notes ---
DATE: 11/11/2016 PSYCHIATRIC PROGRESS NOTE SUBJECTIVE: Staff was spoken to. The patient is interviewed. Mood is noted to be irritable. Affect is constricted. Coping skills are noted to be poor. The patient is getting easily agitated. The patient has been currently on 12.5 mg of Seroquel and has been able to tolerate the medications. No side effects of the medications are noted. The patient's coping skills are noted to be still poor. ASSESSMENT: The patient is still impulsive. PLAN: To continue the patient with current medications and follow up with supportive therapy. JOB# [id number]
[2016-11-12] MEDS: Aspirin 325 mg EC PO SCH (10:00)
[2016-11-12] MEDS: Insulin Detemir 100 units/mL 10mL Vial SUBQ SCH (10:01)
[2016-11-12] MEDS: Multivitamin w/ Minerals Tab PO SCH (10:01)
--- NOTE | 2016-11-12 11:54 | Internal Medicine Prog Note ---
Internal Medicine Subjective - Subjective Service Date: 11/12/16 Patient is:: asleep, non-verbal, non-interactive, eyes closed, in bed, confused Per staff patient has:: no adverse event, no episodes of fall, noncompliant, confused Internal Medicine Objective - Results Result Diagrams: 11/07/16 22:13 11/07/16 22:13 Recent Labs: Laboratory Last Values WBC 9.9 Th/cmm (4.8-10.8) 11/07/16 22:13 RBC 4.56 Mil/cmm (3.80-5.80) 11/07/16 22:13 Hgb 12.8 gm/dL (12.6-17.4) 11/07/16 22:13 Hct 38.3 % (39.0-49.0) L 11/07/16 22:13 MCV 84.1 fl (80-99) 11/07/16 22:13 MCH 28.1 pg (27.0-31.0) 11/07/16 22:13 MCHC Differential 33.5 pg (28.0-36.0) 11/07/16 22:13 RDW 13.0 % (11.5-20.0) 11/07/16 22:13 Plt Count 224 Th/cmm (150-400) D 11/07/16 22:13 MPV 8.4 fl 11/07/16 22:13 Neutrophils % 76.7 % (40.0-80.0) 11/07/16 22:13 Lymphocytes % 16.1 % (20.0-50.0) L 11/07/16 22:13 Monocytes % 3.4 % (2.0-10.0) 11/07/16 22:13 Eosinophils % 2.2 % (0.0-5.0) 11/07/16 22:13 Basophils % 1.6 % (0.0-2.0) 11/07/16 22:13 Sodium 136 mEq/L (136-145) 11/07/16 22:13 Potassium 4.1 mEq/L (3.5-5.1) 11/07/16 22:13 Chloride 104 mEq/L (98-107) 11/07/16 22:13 Carbon Dioxide 24.7 mEq/L (21.0-31.0) 11/07/16 22:13 Anion Gap 11.4 (7.0-16.0) 11/07/16 22:13 BUN 33 mg/dL (7-25) H 11/07/16 22:13 Creatinine 1.4 mg/dL (0.7-1.3) H 11/07/16 22:13 Est GFR ( Amer) TNP 11/07/16 22:13 Est GFR (Non-Af Amer) TNP 11/07/16 22:13 BUN/Creatinine Ratio 23.6 11/07/16 22:13 Glucose 133 mg/dL (70-105) H 11/07/16 22:13 POC Glucose 109 MG/DL (70 - 105) H 11/12/16 11:29 Calcium 9.7 mg/dL (8.6-10.3) 11/07/16 22:13 Total Bilirubin 0.3 mg/dL (0.3-1.0) 11/07/16 22:13 AST 18 U/L (13-39) 11/07/16 22:13 ALT 16 U/L (7-52) 11/07/16 22:13 Alkaline Phosphatase 83 U/L (34-104) 11/07/16 22:13 Total Protein 7.8 gm/dL (6.0-8.3) 11/07/16 22:13 Albumin 3.9 gm/dL (4.2-5.5) L 11/07/16 22:13 Globulin 3.9 gm/dL 11/07/16 22:13 Albumin/Globulin Ratio 1.0 (1.0-1.8) 11/07/16 22:13 Triglycerides 174 mg/dL (<150) H 11/07/16 22:13 Cholesterol 125 mg/dL (<200) 11/07/16 22:13 LDL Cholesterol Direct 67 mg/dL (75-193) L 11/07/16 22:13 HDL Cholesterol 36 mg/dL (23-92) 11/07/16 22:13 TSH 1.54 uIU/ml (0.34-5.60) 11/07/16 22:13 RPR NONREACTIVE (NONREACTIVE) 11/07/16 22:13 - Physical Exam Vitals and I&O: Vital Signs Temp 97.6 F 11/12/16 06:34 Pulse 68 11/12/16 10:47 Resp 20 11/12/16 10:47 BP 97/55 11/12/16 06:34 Pulse Ox 96 11/12/16 06:34 Intake & Output 11/11/16 11/12/16 11/12/16 18:59 06:59 18:59 Intake Total 500 240 Output Total 2 Balance 498 240 Intake: Oral 500 240 Output: Urine 2 Other: # Voids 1 Active Medications: Current Medications Acetaminophen (Tylenol) 650 mg PO Q4HR PRN PRN Reason: Pain or Fever >101 Stop: 01/07/17 01:13 Aspirin (Ecotrin) 325 mg PO DAILY NOLAN Stop: 01/07/17 08:59 Last Admin: 11/12/16 10:00 Dose: Not Given Bisacodyl (Dulcolax 10 Mg Supp) 10 mg RC DAILY PRN PRN Reason: Constipation Stop: 01/07/17 08:59 Docusate Sodium (Colace) 100 mg PO DAILY NOLAN Stop: 01/07/17 08:59 Last Admin: 11/12/16 10:00 Dose: Not Given Famotidine (Pepcid) 20 mg PO DAILY NOLAN Stop: 01/07/17 08:59 Last Admin: 11/12/16 10:00 Dose: Not Given Furosemide (Lasix) 40 mg PO DAILY NOLAN Stop: 01/07/17 08:59 Last Admin: 11/12/16 10:00 Dose: Not Given Insulin Aspart (Novolog Insulin Sliding Scale) 0 units SUBQ ACHS NOLAN PRN Reason: Protocol Stop: 01/07/17 07:29 Last Admin: 11/11/16 21:56 Dose: 4 units Insulin Detemir (Levemir Insulin) 8 units SUBQ DAILY NOLAN Stop: 01/07/17 08:59 Last Admin: 11/12/16 10:01 Dose: Not Given Latanoprost (Xalatan 0.005% Ophth Soln) 1 drop EACH EYE HS NOLAN Stop: 01/07/17 20:59 Last Admin: 11/11/16 21:55 Dose: 1 drop Lorazepam (Ativan) 0.5 mg PO Q8HR PRN; Protocol PRN Reason: Agitation/ anxiety Stop: 01/07/17 01:13 Magnesium Hydroxide (Milk Of Magnesia) 30 ml PO DAILY PRN PRN Reason: Constipation Stop: 01/07/17 01:13 Miscellaneous (Dronedarone Hcl [Multaq]) 400 mg PO BID [facility] Stop: 01/07/17 08:59 Psyllium Hydrophilic Mucilloid (Metamucil) 1 pkt PO BID [facility] Stop: 01/07/17 08:59 Last Admin: 11/12/16 10:02 Dose: Not Given Quetiapine Fumarate (Seroquel) 25 mg PO HS NOLAN PRN Reason: Protocol Stop: 01/08/17 20:59 Senna (Senna) 8.6 mg PO DAILY [facility] Stop: 01/07/17 08:59 Last Admin: 11/12/16 10:02 Dose: Not Given Sodium Phosphate (Fleet Enema) 135 ml RC Q48H PRN PRN Reason: Constipation Stop: 01/07/17 01:13 Zolpidem Tartrate (Ambien) 5 mg PO HS PRN PRN Reason: Insomnia Stop: 01/07/17 01:11 Last Admin: 11/11/16 21:55 Dose: 5 mg General: demented HEENT: NC/AT, PERRLA, EOMI Neck: Supple, No JVD Lungs: CTAB Cardiovascular: RRR, Normal S1, Normal S2, without murmur Abdomen: soft, non-tender, positive bowel sound Extremities: contracture Neurological: no change, disorganized - Procedures Procedures: Procedures Procedure Code Date OTHER GROUP THERAPY 94.44 10/04/14 Internal Medicine Assmt/Plan - Assessment Assessment: PSYCHOSIS CKD DM2 MUSCLE WEAKNESS ENLARGED PROSTATE HYPERLIPIDEMIA - Plan Plan: low fat diet monitor glucose fall precautions continue current plan of care
[2016-11-12] MEDS: INSULIN ASPART SLIDING SCALE 100 UNITS/ML UNIT SUBQ SCH ×3 (11:58→20:35)
--- NOTE | 2016-11-12 14:39 | Progress Notes ---
DATE: 11/12/2016 SUBJECTIVE: Staff was spoken to. The patient is interviewed. Mood is noted to be irritable. Affect is constricted. Insight and judgment at this time are noted to be still impaired. Impulse control is noted to be poor. The patient is testing the limits. No side effects to the medications are noted. The patient is currently on 12.5 mg of Seroquel, which is going to be increased to 25 mg at bedtime because of the patient's impulsivity. The patient needs to be redirected constantly. ASSESSMENT: The patient is still impulsive. PLAN: To increase the dose of Seroquel to 25 mg at bedtime. Encourage the patient to verbalize the concerns rather than to act out. JOB# [id number]
[2016-11-13] MEDS: INSULIN ASPART SLIDING SCALE 100 UNITS/ML UNIT SUBQ SCH ×4 (07:14→20:15)
[2016-11-13] MEDS: Aspirin 325 mg EC PO SCH (08:38)
[2016-11-13] MEDS: Multivitamin w/ Minerals Tab PO SCH (08:39)
[2016-11-13] MEDS: Insulin Detemir 100 units/mL 10mL Vial SUBQ SCH (08:44)
--- NOTE | 2016-11-13 12:54 | Internal Medicine Prog Note ---
Internal Medicine Subjective - Subjective Patient seen and examined:: with staff, chart reviewed Patient is:: asleep, non-verbal, non-interactive, eyes closed, in bed, confused Per staff patient has:: no adverse event, no episodes of fall, noncompliant, confused Internal Medicine Objective - Results Result Diagrams: 11/07/16 22:13 11/07/16 22:13 Recent Labs: Laboratory Last Values WBC 9.9 Th/cmm (4.8-10.8) 11/07/16 22:13 RBC 4.56 Mil/cmm (3.80-5.80) 11/07/16 22:13 Hgb 12.8 gm/dL (12.6-17.4) 11/07/16 22:13 Hct 38.3 % (39.0-49.0) L 11/07/16 22:13 MCV 84.1 fl (80-99) 11/07/16 22:13 MCH 28.1 pg (27.0-31.0) 11/07/16 22:13 MCHC Differential 33.5 pg (28.0-36.0) 11/07/16 22:13 RDW 13.0 % (11.5-20.0) 11/07/16 22:13 Plt Count 224 Th/cmm (150-400) D 11/07/16 22:13 MPV 8.4 fl 11/07/16 22:13 Neutrophils % 76.7 % (40.0-80.0) 11/07/16 22:13 Lymphocytes % 16.1 % (20.0-50.0) L 11/07/16 22:13 Monocytes % 3.4 % (2.0-10.0) 11/07/16 22:13 Eosinophils % 2.2 % (0.0-5.0) 11/07/16 22:13 Basophils % 1.6 % (0.0-2.0) 11/07/16 22:13 Sodium 136 mEq/L (136-145) 11/07/16 22:13 Potassium 4.1 mEq/L (3.5-5.1) 11/07/16 22:13 Chloride 104 mEq/L (98-107) 11/07/16 22:13 Carbon Dioxide 24.7 mEq/L (21.0-31.0) 11/07/16 22:13 Anion Gap 11.4 (7.0-16.0) 11/07/16 22:13 BUN 33 mg/dL (7-25) H 11/07/16 22:13 Creatinine 1.4 mg/dL (0.7-1.3) H 11/07/16 22:13 Est GFR ( Amer) TNP 11/07/16 22:13 Est GFR (Non-Af Amer) TNP 11/07/16 22:13 BUN/Creatinine Ratio 23.6 11/07/16 22:13 Glucose 133 mg/dL (70-105) H 11/07/16 22:13 POC Glucose 131 MG/DL (70 - 105) H 11/13/16 11:08 Calcium 9.7 mg/dL (8.6-10.3) 11/07/16 22:13 Total Bilirubin 0.3 mg/dL (0.3-1.0) 11/07/16 22:13 AST 18 U/L (13-39) 11/07/16 22:13 ALT 16 U/L (7-52) 11/07/16 22:13 Alkaline Phosphatase 83 U/L (34-104) 11/07/16 22:13 Total Protein 7.8 gm/dL (6.0-8.3) 11/07/16 22:13 Albumin 3.9 gm/dL (4.2-5.5) L 11/07/16 22:13 Globulin 3.9 gm/dL 11/07/16 22:13 Albumin/Globulin Ratio 1.0 (1.0-1.8) 11/07/16 22:13 Triglycerides 174 mg/dL (<150) H 11/07/16 22:13 Cholesterol 125 mg/dL (<200) 11/07/16 22:13 LDL Cholesterol Direct 67 mg/dL (75-193) L 11/07/16 22:13 HDL Cholesterol 36 mg/dL (23-92) 11/07/16 22:13 TSH 1.54 uIU/ml (0.34-5.60) 11/07/16 22:13 RPR NONREACTIVE (NONREACTIVE) 11/07/16 22:13 - Physical Exam Vitals and I&O: Vital Signs Temp 98.8 F 11/13/16 05:16 Pulse 71 11/13/16 05:16 Resp 18 11/13/16 05:16 BP 109/68 11/13/16 08:39 Pulse Ox 97 11/13/16 05:16 Intake & Output 11/12/16 11/13/16 11/13/16 18:59 06:59 18:59 Intake Total 240 Balance 240 Weight (lbs) 55.928 kg Intake: Oral 240 Other: # Voids 1 3 # Bowel Movements 0 0 Active Medications: Current Medications Acetaminophen (Tylenol) 650 mg PO Q4HR PRN PRN Reason: Pain or Fever >101 Stop: 01/07/17 01:13 Aspirin (Ecotrin) 325 mg PO DAILY [facility] Stop: 01/07/17 08:59 Last Admin: 11/13/16 08:38 Dose: 325 mg Bisacodyl (Dulcolax 10 Mg Supp) 10 mg RC DAILY PRN PRN Reason: Constipation Stop: 01/07/17 08:59 Docusate Sodium (Colace) 100 mg PO DAILY [facility] Stop: 01/07/17 08:59 Last Admin: 11/13/16 08:40 Dose: 100 mg Famotidine (Pepcid) 20 mg PO DAILY [facility] Stop: 01/07/17 08:59 Last Admin: 11/13/16 08:39 Dose: 20 mg Furosemide (Lasix) 40 mg PO DAILY [facility] Stop: 01/07/17 08:59 Last Admin: 11/13/16 08:39 Dose: Not Given Insulin Aspart (Novolog Insulin Sliding Scale) 0 units SUBQ ACHS [facility] PRN Reason: Protocol Stop: 01/07/17 07:29 Last Admin: 11/13/16 11:22 Dose: Not Given Insulin Detemir (Levemir Insulin) 8 units SUBQ DAILY [facility] Stop: 01/07/17 08:59 Last Admin: 11/13/16 08:44 Dose: Not Given Latanoprost (Xalatan 0.005% Ophth Soln) 1 drop EACH EYE HS [facility] Stop: 01/07/17 20:59 Last Admin: 11/12/16 20:34 Dose: 1 drop Lorazepam (Ativan) 0.5 mg PO Q8HR PRN; Protocol PRN Reason: Agitation/ anxiety Stop: 01/07/17 01:13 Magnesium Hydroxide (Milk Of Magnesia) 30 ml PO DAILY PRN PRN Reason: Constipation Stop: 01/07/17 01:13 Miscellaneous (Dronedarone Hcl [Multaq]) 400 mg PO BID [facility] Stop: 01/07/17 08:59 Psyllium Hydrophilic Mucilloid (Metamucil) 1 pkt PO BID [facility] Stop: 01/07/17 08:59 Last Admin: 11/13/16 08:38 Dose: 1 pkt Quetiapine Fumarate (Seroquel) 25 mg PO HS [facility] PRN Reason: Protocol Stop: 01/08/17 20:59 Last Admin: 11/12/16 20:27 Dose: 25 mg Senna (Senna) 8.6 mg PO DAILY [facility] Stop: 01/07/17 08:59 Last Admin: 11/13/16 08:39 Dose: 8.6 mg Sodium Phosphate (Fleet Enema) 135 ml RC Q48H PRN PRN Reason: Constipation Stop: 01/07/17 01:13 Zolpidem Tartrate (Ambien) 5 mg PO HS PRN PRN Reason: Insomnia Stop: 01/07/17 01:11 Last Admin: 11/11/16 21:55 Dose: 5 mg General: demented HEENT: NC/AT, PERRLA, EOMI Neck: Supple, No JVD Lungs: CTAB Cardiovascular: RRR, Normal S1, Normal S2, without murmur Abdomen: soft, non-tender, positive bowel sound Extremities: contracture Neurological: no change, disorganized - Procedures Procedures: Procedures Procedure Code Date OTHER GROUP THERAPY 94.44 10/04/14 Internal Medicine Assmt/Plan - Assessment Assessment: PSYCHOSIS CKD DM2 MUSCLE WEAKNESS ENLARGED PROSTATE HYPERLIPIDEMIA - Plan Plan: cont on ada iss fall precaution nutritional support cpm labs noted jean claude rn Nutritional Asmnt/Malnutr-PDOC - Dietary Evaluation Malnutrition Findings (Please click <Entered> for more info): Nutritional Asmnt/Malnutrition Start: 11/12/16 11: 54 Text: Status: Complete Freq: Document 11/12/16 11:54 GSUN (Rec: 11/12/16 12:13 [email or web address] [email or web address]) Nutritional Asmnt/Malnutrition Patient General Information Nutritional Screening Moderate Risk Screening Diagnosis Psychosis, dementia, HTN, COPD , glaucoma, osteoarthritis Pertinent Medical Hx/Surgical Hx CKD, muscle weakness, dysphagia, anlarged prostate, DM type 2, hyperlipidemia Subjective Information 76 year old male from SNF. Per RN notes, pt is confused. Pt was soundly asleep during visit, woke up to RD's call however went straight back to sleep. [place] up to mouth, unable to completep hysical assessment. CBW 123.3lb via bedscale. Spoke to CNAs, CNAs stated pt has been sleeping this morning, tolerated ~75% of meals yesterday, requires assistant track coach with meals, may be aggressive when woken up. Avg PO intake ~50% of meals since adm, meeting 61% lower end kcal needs. Current Diet Order/ Nutrition Support Pureed, CCHO, SLADE Pertinent Medications Colace, Pepcid, Lasix, Novolog , Levemir, MOM, Metamucil, Seroquel, Senna, Fleet Enema Pertinent Labs 11/07: glucose 133H, creatiine 1.4H, BUN 33H POC glucose 93-234 since adm Nutritional Hx/Data Height 1.63 m Height (Calculated Centimeters) 162.6 Current Weight (lbs) 55.928 kg Weight (Calculated Kilograms) 55.9 Weight (Calculated Grams) 33409.9 [place] Body Weight 130 Weight Status Approriate GI Symptoms Usual diet at home [place] [facility]: pureed, CCHO, SLADE Skin Integrity/Comment: Ugo 16. Coccyx erythema. Current %PO Fair (50-74%) Estimated Nutritional Goals BEE in Kcals: Using Current wt Calories/Kcals/Kg CBW 123.3lb/56kg Kcals Calculated 1400-1680kcal (25-30kcal/kg) Protein: Using Current wt Protein Calculated 56g (1g/kg) Fluid: ml 1400-1680ml (1ml/kcal) Nutritional Problem 1. Problem Problem Inadequate oral food beverage intake related to Etiology unknown, liekly lethargy, likely confusion aeb Signs/Symptoms: DEVELOPMENT TECHNOLOGIST reported, avg PO itnake meeting 61% lower end kcal needs Intervention/Recommendation Comments 1. Continue with current diet order. Avg PO intake is inadequate, encourage PO intake, assist as needed. 2. Recommend Boost Glucose Control QD. Expected Outcomes/Goals Expected Outcomes/Goals 1. PO intake to meet at least 75% of estimated nutritional needs.
[2016-11-13] MEDS: DRONEDARONE HCL 400 MG PO SCH (17:08)
[2016-11-14] MEDS: INSULIN ASPART SLIDING SCALE 100 UNITS/ML UNIT SUBQ SCH ×4 (06:33→20:37)
[2016-11-14] MEDS: Aspirin 325 mg EC PO SCH (08:32)
[2016-11-14] MEDS: Multivitamin w/ Minerals Tab PO SCH (08:32)
[2016-11-14] MEDS: Insulin Detemir 100 units/mL 10mL Vial SUBQ SCH (09:47)
--- NOTE | 2016-11-14 12:09 | Internal Medicine Prog Note ---
Internal Medicine Subjective - Subjective Patient seen and examined:: with staff, chart reviewed Patient is:: asleep, non-verbal, non-interactive, eyes closed, in bed, confused Per staff patient has:: no adverse event, no episodes of fall, noncompliant, confused Internal Medicine Objective - Results Result Diagrams: 11/07/16 22:13 11/07/16 22:13 Recent Labs: Laboratory Last Values WBC 9.9 Th/cmm (4.8-10.8) 11/07/16 22:13 RBC 4.56 Mil/cmm (3.80-5.80) 11/07/16 22:13 Hgb 12.8 gm/dL (12.6-17.4) 11/07/16 22:13 Hct 38.3 % (39.0-49.0) L 11/07/16 22:13 MCV 84.1 fl (80-99) 11/07/16 22:13 MCH 28.1 pg (27.0-31.0) 11/07/16 22:13 MCHC Differential 33.5 pg (28.0-36.0) 11/07/16 22:13 RDW 13.0 % (11.5-20.0) 11/07/16 22:13 Plt Count 224 Th/cmm (150-400) D 11/07/16 22:13 MPV 8.4 fl 11/07/16 22:13 Neutrophils % 76.7 % (40.0-80.0) 11/07/16 22:13 Lymphocytes % 16.1 % (20.0-50.0) L 11/07/16 22:13 Monocytes % 3.4 % (2.0-10.0) 11/07/16 22:13 Eosinophils % 2.2 % (0.0-5.0) 11/07/16 22:13 Basophils % 1.6 % (0.0-2.0) 11/07/16 22:13 Sodium 136 mEq/L (136-145) 11/07/16 22:13 Potassium 4.1 mEq/L (3.5-5.1) 11/07/16 22:13 Chloride 104 mEq/L (98-107) 11/07/16 22:13 Carbon Dioxide 24.7 mEq/L (21.0-31.0) 11/07/16 22:13 Anion Gap 11.4 (7.0-16.0) 11/07/16 22:13 BUN 33 mg/dL (7-25) H 11/07/16 22:13 Creatinine 1.4 mg/dL (0.7-1.3) H 11/07/16 22:13 Est GFR ( Amer) TNP 11/07/16 22:13 Est GFR (Non-Af Amer) TNP 11/07/16 22:13 BUN/Creatinine Ratio 23.6 11/07/16 22:13 Glucose 133 mg/dL (70-105) H 11/07/16 22:13 POC Glucose 217 MG/DL (70 - 105) H 11/14/16 11:10 Calcium 9.7 mg/dL (8.6-10.3) 11/07/16 22:13 Total Bilirubin 0.3 mg/dL (0.3-1.0) 11/07/16 22:13 AST 18 U/L (13-39) 11/07/16 22:13 ALT 16 U/L (7-52) 11/07/16 22:13 Alkaline Phosphatase 83 U/L (34-104) 11/07/16 22:13 Total Protein 7.8 gm/dL (6.0-8.3) 11/07/16 22:13 Albumin 3.9 gm/dL (4.2-5.5) L 11/07/16 22:13 Globulin 3.9 gm/dL 11/07/16 22:13 Albumin/Globulin Ratio 1.0 (1.0-1.8) 11/07/16 22:13 Triglycerides 174 mg/dL (<150) H 11/07/16 22:13 Cholesterol 125 mg/dL (<200) 11/07/16 22:13 LDL Cholesterol Direct 67 mg/dL (75-193) L 11/07/16 22:13 HDL Cholesterol 36 mg/dL (23-92) 11/07/16 22:13 TSH 1.54 uIU/ml (0.34-5.60) 11/07/16 22:13 RPR NONREACTIVE (NONREACTIVE) 11/07/16 22:13 - Physical Exam Vitals and I&O: Vital Signs Temp 98.4 F 11/14/16 06:42 Pulse 64 11/14/16 08:33 Resp 19 11/14/16 06:42 BP 123/77 11/14/16 08:33 Pulse Ox 96 11/14/16 06:42 Intake & Output 11/13/16 11/14/16 11/14/16 18:59 06:59 18:59 Intake Total 500 120 Balance 500 120 Intake: Oral 500 120 Other: # Voids 2 3 # Bowel Movements 1 Active Medications: Current Medications Acetaminophen (Tylenol) 650 mg PO Q4HR PRN PRN Reason: Pain or Fever >101 Stop: 01/07/17 01:13 Amiodarone HCl (Cordarone) 200 mg PO BID [facility] Stop: 01/12/17 16:59 Last Admin: 11/14/16 08:33 Dose: 200 mg Aspirin (Ecotrin) 325 mg PO DAILY [facility] Stop: 01/07/17 08:59 Last Admin: 11/14/16 08:32 Dose: 325 mg Bisacodyl (Dulcolax 10 Mg Supp) 10 mg RC DAILY PRN PRN Reason: Constipation Stop: 01/07/17 08:59 Docusate Sodium (Colace) 100 mg PO DAILY [facility] Stop: 01/07/17 08:59 Last Admin: 11/14/16 08:32 Dose: 100 mg Famotidine (Pepcid) 20 mg PO DAILY [facility] Stop: 01/07/17 08:59 Last Admin: 11/14/16 08:33 Dose: 20 mg Furosemide (Lasix) 40 mg PO DAILY [facility] Stop: 01/07/17 08:59 Last Admin: 11/14/16 08:33 Dose: 40 mg Insulin Aspart (Novolog Insulin Sliding Scale) 0 units SUBQ ACHS [facility] PRN Reason: Protocol Stop: 01/07/17 07:29 Last Admin: 11/14/16 06:33 Dose: Not Given Insulin Detemir (Levemir Insulin) 8 units SUBQ DAILY [facility] Stop: 01/07/17 08:59 Last Admin: 11/14/16 09:47 Dose: 8 unit Latanoprost (Xalatan 0.005% Ophth Soln) 1 drop EACH EYE HS [facility] Stop: 01/07/17 20:59 Last Admin: 11/13/16 20:12 Dose: 1 drop Lorazepam (Ativan) 0.5 mg PO Q8HR PRN; Protocol PRN Reason: Agitation/ anxiety Stop: 01/07/17 01:13 Last Admin: 11/14/16 01:05 Dose: 0.5 mg Magnesium Hydroxide (Milk Of Magnesia) 30 ml PO DAILY PRN PRN Reason: Constipation Stop: 01/07/17 01:13 Psyllium Hydrophilic Mucilloid (Metamucil) 1 pkt PO BID [facility] Stop: 01/07/17 08:59 Last Admin: 11/14/16 08:32 Dose: 1 pkt Quetiapine Fumarate (Seroquel) 25 mg PO HS [facility] PRN Reason: Protocol Stop: 01/08/17 20:59 Last Admin: 11/13/16 20:12 Dose: 25 mg Senna (Senna) 8.6 mg PO DAILY [facility] Stop: 01/07/17 08:59 Last Admin: 11/14/16 08:32 Dose: 8.6 mg Sodium Phosphate (Fleet Enema) 135 ml RC Q48H PRN PRN Reason: Constipation Stop: 01/07/17 01:13 Zolpidem Tartrate (Ambien) 5 mg PO HS PRN PRN Reason: Insomnia Stop: 01/07/17 01:11 Last Admin: 11/11/16 21:55 Dose: 5 mg General: demented HEENT: NC/AT, PERRLA, EOMI Neck: Supple, No JVD Lungs: CTAB Cardiovascular: RRR, Normal S1, Normal S2, without murmur Abdomen: soft, non-tender, positive bowel sound Extremities: contracture Neurological: no change, disorganized - Procedures Procedures: Procedures Procedure Code Date OTHER GROUP THERAPY 94.44 10/04/14 Internal Medicine Assmt/Plan - Assessment Assessment: PSYCHOSIS CKD DM2 MUSCLE WEAKNESS ENLARGED PROSTATE HYPERLIPIDEMIA - Plan Plan: cont on ada iss fall precaution nutritional support cpm labs noted dw rn Nutritional Asmnt/Malnutr-PDOC - Dietary Evaluation Malnutrition Findings (Please click <Entered> for more info): Nutritional Asmnt/Malnutrition Start: 11/12/16 11: 54 Text: Status: Complete Freq: Document 11/12/16 11:54 GSUN (Rec: 11/12/16 12:13 GSUN [email or web address]) Nutritional Asmnt/Malnutrition Patient General Information Nutritional Screening Moderate Risk Screening Diagnosis Psychosis, dementia, HTN, COPD , glaucoma, osteoarthritis Pertinent Medical Hx/Surgical Hx CKD, muscle weakness, dysphagia, anlarged prostate, DM type 2, hyperlipidemia Subjective Information 76 year old male from SNF. Per RN notes, pt is confused. Pt was soundly asleep during visit, woke up to RD's call however went straight back to sleep. [place] up to mouth, unable to completep hysical assessment. CBW 123.3lb via bedscale. Spoke to CNAs, CNAs stated pt has been sleeping this morning, tolerated ~75% of meals yesterday, requires assistant director of security with meals, may be aggressive when woken up. Avg PO intake ~50% of meals since adm, meeting 61% lower end kcal needs. Current Diet Order/ Nutrition Support Pureed, CCHO, SLADE Pertinent Medications Colace, Pepcid, Lasix, Novolog , Levemir, MOM, Metamucil, Seroquel, Senna, Fleet Enema Pertinent Labs 11/07: glucose 133H, creatiine 1.4H, BUN 33H POC glucose 93-234 since adm Nutritional Hx/Data Height 1.63 m Height (Calculated Centimeters) 162.6 Current Weight (lbs) 55.928 kg Weight (Calculated Kilograms) 55.9 Weight (Calculated Grams) 88448.9 [place] Body Weight 130 Weight Status Approriate GI Symptoms Usual diet at home [place] [facility]: pureed, CCHO, SLADE Skin Integrity/Comment: Ugo 16. Coccyx erythema. Current %PO Fair (50-74%) Estimated Nutritional Goals BEE in Kcals: Using Current wt Calories/Kcals/Kg CBW 123.3lb/56kg Kcals Calculated 1400-1680kcal (25-30kcal/kg) Protein: Using Current wt Protein Calculated 56g (1g/kg) Fluid: ml 1400-1680ml (1ml/kcal) Nutritional Problem 1. Problem Problem Inadequate oral food beverage intake related to Etiology unknown, liekly lethargy, likely confusion aeb Signs/Symptoms: INSTALLER reported, avg PO itnake meeting 61% lower end kcal needs Intervention/Recommendation Comments 1. Continue with current diet order. Avg PO intake is inadequate, encourage PO intake, assist as needed. 2. Recommend Boost Glucose Control QD. Expected Outcomes/Goals Expected Outcomes/Goals 1. PO intake to meet at least 75% of estimated nutritional needs.
--- NOTE | 2016-11-15 02:06 | Progress Notes ---
DATE: 11/14/2016 PSYCHIATRIC PROGRESS NOTE SUBJECTIVE: Staff was spoken to. The patient is interviewed. Mood is a little bit irritable. Affect is constricted. Coping skills are noted to be poor. Sleep and appetite also noted to be poor. The patient is, however, getting less agitated, but denies any command hallucinations today. The patient is currently on 25 mg of Seroquel and has been able to tolerate the medication. The patient at this time is stabilizing. Personal hygiene is noted to be somewhat poor. PLAN: To continue the patient with the current medications and followup. JOB# [id number]
[2016-11-15] MEDS: INSULIN ASPART SLIDING SCALE 100 UNITS/ML UNIT SUBQ SCH ×4 (06:36→21:04)
[2016-11-15] MEDS: Insulin Detemir 100 units/mL 10mL Vial SUBQ SCH (09:45)
[2016-11-15] MEDS: Aspirin 325 mg EC PO SCH (09:46)
[2016-11-15] MEDS: Multivitamin w/ Minerals Tab PO SCH (09:46)
--- NOTE | 2016-11-15 14:59 | Internal Medicine Prog Note ---
Internal Medicine Subjective - Subjective Patient seen and examined:: with staff, chart reviewed Patient is:: asleep, non-verbal, non-interactive, eyes closed, in bed, confused Per staff patient has:: no adverse event, no episodes of fall, noncompliant, confused Internal Medicine Objective - Results Result Diagrams: 11/07/16 22:13 11/07/16 22:13 Recent Labs: Laboratory Last Values WBC 9.9 Th/cmm (4.8-10.8) 11/07/16 22:13 RBC 4.56 Mil/cmm (3.80-5.80) 11/07/16 22:13 Hgb 12.8 gm/dL (12.6-17.4) 11/07/16 22:13 Hct 38.3 % (39.0-49.0) L 11/07/16 22:13 MCV 84.1 fl (80-99) 11/07/16 22:13 MCH 28.1 pg (27.0-31.0) 11/07/16 22:13 MCHC Differential 33.5 pg (28.0-36.0) 11/07/16 22:13 RDW 13.0 % (11.5-20.0) 11/07/16 22:13 Plt Count 224 Th/cmm (150-400) D 11/07/16 22:13 MPV 8.4 fl 11/07/16 22:13 Neutrophils % 76.7 % (40.0-80.0) 11/07/16 22:13 Lymphocytes % 16.1 % (20.0-50.0) L 11/07/16 22:13 Monocytes % 3.4 % (2.0-10.0) 11/07/16 22:13 Eosinophils % 2.2 % (0.0-5.0) 11/07/16 22:13 Basophils % 1.6 % (0.0-2.0) 11/07/16 22:13 Sodium 136 mEq/L (136-145) 11/07/16 22:13 Potassium 4.1 mEq/L (3.5-5.1) 11/07/16 22:13 Chloride 104 mEq/L (98-107) 11/07/16 22:13 Carbon Dioxide 24.7 mEq/L (21.0-31.0) 11/07/16 22:13 Anion Gap 11.4 (7.0-16.0) 11/07/16 22:13 BUN 33 mg/dL (7-25) H 11/07/16 22:13 Creatinine 1.4 mg/dL (0.7-1.3) H 11/07/16 22:13 Est GFR ( Amer) TNP 11/07/16 22:13 Est GFR (Non-Af Amer) TNP 11/07/16 22:13 BUN/Creatinine Ratio 23.6 11/07/16 22:13 Glucose 133 mg/dL (70-105) H 11/07/16 22:13 POC Glucose 154 MG/DL (70 - 105) H 11/15/16 11:30 Calcium 9.7 mg/dL (8.6-10.3) 11/07/16 22:13 Total Bilirubin 0.3 mg/dL (0.3-1.0) 11/07/16 22:13 AST 18 U/L (13-39) 11/07/16 22:13 ALT 16 U/L (7-52) 11/07/16 22:13 Alkaline Phosphatase 83 U/L (34-104) 11/07/16 22:13 Total Protein 7.8 gm/dL (6.0-8.3) 11/07/16 22:13 Albumin 3.9 gm/dL (4.2-5.5) L 11/07/16 22:13 Globulin 3.9 gm/dL 11/07/16 22:13 Albumin/Globulin Ratio 1.0 (1.0-1.8) 11/07/16 22:13 Triglycerides 174 mg/dL (<150) H 11/07/16 22:13 Cholesterol 125 mg/dL (<200) 11/07/16 22:13 LDL Cholesterol Direct 67 mg/dL (75-193) L 11/07/16 22:13 HDL Cholesterol 36 mg/dL (23-92) 11/07/16 22:13 TSH 1.54 uIU/ml (0.34-5.60) 11/07/16 22:13 RPR NONREACTIVE (NONREACTIVE) 11/07/16 22:13 - Physical Exam Vitals and I&O: Vital Signs Temp 98.2 F 11/14/16 18:27 Pulse 62 11/15/16 12:05 Resp 20 11/14/16 20:00 BP 92/54 11/15/16 12:05 Pulse Ox 98 11/14/16 18:27 Intake & Output 11/14/16 11/15/16 11/15/16 18:59 06:59 18:59 Intake Total 900 Balance 900 Intake: Oral 900 Other: # Voids 3 # Bowel Movements 1 Active Medications: Current Medications Acetaminophen (Tylenol) 650 mg PO Q4HR PRN PRN Reason: Pain or Fever >101 Stop: 01/07/17 01:13 Amiodarone HCl (Cordarone) 200 mg PO BID [facility] Stop: 01/12/17 16:59 Last Admin: 11/15/16 12:05 Dose: Not Given Aspirin (Ecotrin) 325 mg PO DAILY [facility] Stop: 01/07/17 08:59 Last Admin: 11/15/16 09:46 Dose: 325 mg Bisacodyl (Dulcolax 10 Mg Supp) 10 mg RC DAILY PRN PRN Reason: Constipation Stop: 01/07/17 08:59 Docusate Sodium (Colace) 100 mg PO DAILY [facility] Stop: 01/07/17 08:59 Last Admin: 11/15/16 09:46 Dose: 100 mg Famotidine (Pepcid) 20 mg PO DAILY [facility] Stop: 01/07/17 08:59 Last Admin: 11/15/16 09:46 Dose: 20 mg Insulin Aspart (Novolog Insulin Sliding Scale) 0 units SUBQ ACHS [facility] PRN Reason: Protocol Stop: 01/07/17 07:29 Last Admin: 11/15/16 12:55 Dose: Not Given Insulin Detemir (Levemir Insulin) 8 units SUBQ DAILY [facility] Stop: 01/07/17 08:59 Last Admin: 11/15/16 09:45 Dose: 8 unit Latanoprost (Xalatan 0.005% Ophth Soln) 1 drop EACH EYE HS [facility] Stop: 01/07/17 20:59 Last Admin: 11/14/16 20:19 Dose: 1 drop Lorazepam (Ativan) 0.5 mg PO Q8HR PRN; Protocol PRN Reason: Agitation/ anxiety Stop: 01/07/17 01:13 Last Admin: 11/15/16 00:31 Dose: 0.5 mg Magnesium Hydroxide (Milk Of Magnesia) 30 ml PO DAILY PRN PRN Reason: Constipation Stop: 01/07/17 01:13 Psyllium Hydrophilic Mucilloid (Metamucil) 1 pkt PO BID [facility] Stop: 01/07/17 08:59 Last Admin: 11/15/16 09:46 Dose: 1 pkt Quetiapine Fumarate (Seroquel) 25 mg PO HS [facility] PRN Reason: Protocol Stop: 01/08/17 20:59 Last Admin: 11/14/16 20:19 Dose: 25 mg Senna (Senna) 8.6 mg PO DAILY [facility] Stop: 01/07/17 08:59 Last Admin: 11/15/16 09:46 Dose: 8.6 mg Sodium Phosphate (Fleet Enema) 135 ml RC Q48H PRN PRN Reason: Constipation Stop: 01/07/17 01:13 Zolpidem Tartrate (Ambien) 5 mg PO HS PRN PRN Reason: Insomnia Stop: 01/07/17 01:11 Last Admin: 11/15/16 00:31 Dose: 5 mg General: demented HEENT: NC/AT, PERRLA, EOMI Neck: Supple, No JVD Lungs: CTAB Cardiovascular: RRR, Normal S1, Normal S2, without murmur Abdomen: soft, non-tender, positive bowel sound Extremities: contracture Neurological: no change, disorganized - Procedures Procedures: Procedures Procedure Code Date OTHER GROUP THERAPY 94.44 10/04/14 Internal Medicine Assmt/Plan - Assessment Assessment: PSYCHOSIS CKD DM2 MUSCLE WEAKNESS ENLARGED PROSTATE HYPERLIPIDEMIA - Plan Plan: cont on ada iss fall precaution nutritional support cpm labs noted dw rn Nutritional Asmnt/Malnutr-PDOC - Dietary Evaluation Malnutrition Findings (Please click <Entered> for more info): Nutritional Asmnt/Malnutrition Start: 11/12/16 11: 54 Text: Status: Complete Freq: Document 11/12/16 11:54 GSUN (Rec: 11/12/16 12:13 GSUN [id number]) Nutritional Asmnt/Malnutrition Patient General Information Nutritional Screening Moderate Risk Screening Diagnosis Psychosis, dementia, HTN, COPD , glaucoma, osteoarthritis Pertinent Medical Hx/Surgical Hx CKD, muscle weakness, dysphagia, anlarged prostate, DM type 2, hyperlipidemia Subjective Information 76 year old male from SNF. Per RN notes, pt is confused. Pt was soundly asleep during visit, woke up to RD's call however went straight back to sleep. [place] up to mouth, unable to completep hysical assessment. CBW 123.3lb via bedscale. Spoke to CNAs, CNAs stated pt has been sleeping this morning, tolerated ~75% of meals yesterday, requires technical assistant with meals, may be aggressive when woken up. Avg PO intake ~50% of meals since adm, meeting 61% lower end kcal needs. Current Diet Order/ Nutrition Support Yobani, CCHO, SLADE Pertinent Medications Colace, Pepcid, Lasix, Novolog , Levemir, MOM, Metamucil, Seroquel, Senna, Fleet Enema Pertinent Labs 11/07: glucose 133H, creatiine 1.4H, BUN 33H POC glucose 93-234 since adm Nutritional Hx/Data Height 1.63 m Height (Calculated Centimeters) 162.6 Current Weight (lbs) 55.928 kg Weight (Calculated Kilograms) 55.9 Weight (Calculated Grams) 61434.9 [place] Body Weight 130 Weight Status Approriate GI Symptoms Usual diet at home [facility]: yobani, CCHO, SLADE Skin Integrity/Comment: Ugo 16. Coccyx erythema. Current %PO Fair (50-74%) Estimated Nutritional Goals BEE in Kcals: Using Current wt Calories/Kcals/Kg CBW 123.3lb/56kg Kcals Calculated 1400-1680kcal (25-30kcal/kg) Protein: Using Current wt Protein Calculated 56g (1g/kg) Fluid: ml 1400-1680ml (1ml/kcal) Nutritional Problem 1. Problem Problem Inadequate oral food beverage intake related to Etiology unknown, liekly lethargy, likely confusion aeb Signs/Symptoms: COFFEE FARMER reported, avg PO itnake meeting 61% lower end kcal needs Intervention/Recommendation Comments 1. Continue with current diet order. Avg PO intake is inadequate, encourage PO intake, assist as needed. 2. Recommend Boost Glucose Control QD. Expected Outcomes/Goals Expected Outcomes/Goals 1. PO intake to meet at least 75% of estimated nutritional needs.
[2016-11-16] MEDS: INSULIN ASPART SLIDING SCALE 100 UNITS/ML UNIT SUBQ SCH ×4 (06:40→21:18)
--- NOTE | 2016-11-16 07:31 | Progress Notes ---
DATE: 11/15/2016 PSYCHIATRIC PROGRESS NOTE SUBJECTIVE: Staff was spoken to. The patient is interviewed. Mood is irritable. Affect is constricted. The patient's coping skills are noted to be still poor. The patient is confused this evening and has been getting easily upset. The patient is currently on Seroquel 25 mg and has been able to tolerate the medication. Sleep is noted to be poor. Appetite is noted to be fair. ASSESSMENT: The patient is still psychotic and impulsive. PLAN: To continue the patient with supportive therapy. I encouraged the patient to verbalize the concerns. The patient is still not ready to be discharged to a lower level of care in view of his agitated behavior. JOB# [id number]
[2016-11-16] MEDS: Multivitamin w/ Minerals Tab PO SCH (09:34)
[2016-11-16] MEDS: Insulin Detemir 100 units/mL 10mL Vial SUBQ SCH (09:34)
[2016-11-16] MEDS: Aspirin 325 mg EC PO SCH (09:34)
--- NOTE | 2016-11-16 14:17 | Internal Medicine Prog Note ---
Internal Medicine Subjective - Subjective Patient seen and examined:: with staff, chart reviewed Patient is:: asleep, non-verbal, non-interactive, eyes closed, in bed, confused Per staff patient has:: no adverse event, no episodes of fall, noncompliant, confused Internal Medicine Objective - Results Result Diagrams: 11/07/16 22:13 11/07/16 22:13 Recent Labs: Laboratory Last Values WBC 9.9 Th/cmm (4.8-10.8) 11/07/16 22:13 RBC 4.56 Mil/cmm (3.80-5.80) 11/07/16 22:13 Hgb 12.8 gm/dL (12.6-17.4) 11/07/16 22:13 Hct 38.3 % (39.0-49.0) L 11/07/16 22:13 MCV 84.1 fl (80-99) 11/07/16 22:13 MCH 28.1 pg (27.0-31.0) 11/07/16 22:13 MCHC Differential 33.5 pg (28.0-36.0) 11/07/16 22:13 RDW 13.0 % (11.5-20.0) 11/07/16 22:13 Plt Count 224 Th/cmm (150-400) D 11/07/16 22:13 MPV 8.4 fl 11/07/16 22:13 Neutrophils % 76.7 % (40.0-80.0) 11/07/16 22:13 Lymphocytes % 16.1 % (20.0-50.0) L 11/07/16 22:13 Monocytes % 3.4 % (2.0-10.0) 11/07/16 22:13 Eosinophils % 2.2 % (0.0-5.0) 11/07/16 22:13 Basophils % 1.6 % (0.0-2.0) 11/07/16 22:13 Sodium 136 mEq/L (136-145) 11/07/16 22:13 Potassium 4.1 mEq/L (3.5-5.1) 11/07/16 22:13 Chloride 104 mEq/L (98-107) 11/07/16 22:13 Carbon Dioxide 24.7 mEq/L (21.0-31.0) 11/07/16 22:13 Anion Gap 11.4 (7.0-16.0) 11/07/16 22:13 BUN 33 mg/dL (7-25) H 11/07/16 22:13 Creatinine 1.4 mg/dL (0.7-1.3) H 11/07/16 22:13 Est GFR ( Amer) TNP 11/07/16 22:13 Est GFR (Non-Af Amer) TNP 11/07/16 22:13 BUN/Creatinine Ratio 23.6 11/07/16 22:13 Glucose 133 mg/dL (70-105) H 11/07/16 22:13 POC Glucose 121 MG/DL (70 - 105) H 11/16/16 06:28 Calcium 9.7 mg/dL (8.6-10.3) 11/07/16 22:13 Total Bilirubin 0.3 mg/dL (0.3-1.0) 11/07/16 22:13 AST 18 U/L (13-39) 11/07/16 22:13 ALT 16 U/L (7-52) 11/07/16 22:13 Alkaline Phosphatase 83 U/L (34-104) 11/07/16 22:13 Total Protein 7.8 gm/dL (6.0-8.3) 11/07/16 22:13 Albumin 3.9 gm/dL (4.2-5.5) L 11/07/16 22:13 Globulin 3.9 gm/dL 11/07/16 22:13 Albumin/Globulin Ratio 1.0 (1.0-1.8) 11/07/16 22:13 Triglycerides 174 mg/dL (<150) H 11/07/16 22:13 Cholesterol 125 mg/dL (<200) 11/07/16 22:13 LDL Cholesterol Direct 67 mg/dL (75-193) L 11/07/16 22:13 HDL Cholesterol 36 mg/dL (23-92) 11/07/16 22:13 TSH 1.54 uIU/ml (0.34-5.60) 11/07/16 22:13 RPR NONREACTIVE (NONREACTIVE) 11/07/16 22:13 - Physical Exam Vitals and I&O: Vital Signs Temp 98 F 11/15/16 20:44 Pulse 64 11/16/16 09:34 Resp 20 11/15/16 20:44 BP 104/54 11/16/16 09:35 Pulse Ox 96 11/15/16 20:44 Intake & Output 11/15/16 11/16/16 11/16/16 18:59 06:59 18:59 Intake Total 720 120 Balance 720 120 Intake: Oral 720 120 Other: # Voids 4 1 # Bowel Movements 1 Active Medications: Current Medications Acetaminophen (Tylenol) 650 mg PO Q4HR PRN PRN Reason: Pain or Fever >101 Stop: 01/07/17 01:13 Amiodarone HCl (Cordarone) 200 mg PO BID [facility] Stop: 01/12/17 16:59 Last Admin: 11/16/16 09:34 Dose: 200 mg Aspirin (Ecotrin) 325 mg PO DAILY [facility] Stop: 01/07/17 08:59 Last Admin: 11/16/16 09:34 Dose: 325 mg Bisacodyl (Dulcolax 10 Mg Supp) 10 mg RC DAILY PRN PRN Reason: Constipation Stop: 01/07/17 08:59 Docusate Sodium (Colace) 100 mg PO DAILY [facility] Stop: 01/07/17 08:59 Last Admin: 11/16/16 09:34 Dose: 100 mg Famotidine (Pepcid) 20 mg PO DAILY [facility] Stop: 01/07/17 08:59 Last Admin: 11/16/16 09:34 Dose: 20 mg Furosemide (Lasix) 20 mg PO DAILY [facility] Stop: 01/15/17 08:59 Last Admin: 11/16/16 09:35 Dose: Not Given Insulin Aspart (Novolog Insulin Sliding Scale) 0 units SUBQ ACHS [facility] PRN Reason: Protocol Stop: 01/07/17 07:29 Last Admin: 11/16/16 12:42 Dose: 6 units Insulin Detemir (Levemir Insulin) 8 units SUBQ DAILY [facility] Stop: 01/07/17 08:59 Last Admin: 11/16/16 09:34 Dose: 8 unit Latanoprost (Xalatan 0.005% Ophth Soln) 1 drop EACH EYE HS [facility] Stop: 01/07/17 20:59 Last Admin: 11/15/16 20:52 Dose: 1 drop Lorazepam (Ativan) 0.5 mg PO Q8HR PRN; Protocol PRN Reason: Agitation/ anxiety Stop: 01/07/17 01:13 Last Admin: 11/15/16 00:31 Dose: 0.5 mg Magnesium Hydroxide (Milk Of Magnesia) 30 ml PO DAILY PRN PRN Reason: Constipation Stop: 01/07/17 01:13 Psyllium Hydrophilic Mucilloid (Metamucil) 1 pkt PO BID [facility] Stop: 01/07/17 08:59 Last Admin: 11/16/16 09:34 Dose: 1 pkt Quetiapine Fumarate (Seroquel) 25 mg PO HS [facility] PRN Reason: Protocol Stop: 01/08/17 20:59 Last Admin: 11/15/16 20:53 Dose: 25 mg Senna (Senna) 8.6 mg PO DAILY [facility] Stop: 01/07/17 08:59 Last Admin: 11/16/16 09:35 Dose: 8.6 mg Sodium Phosphate (Fleet Enema) 135 ml RC Q48H PRN PRN Reason: Constipation Stop: 01/07/17 01:13 Zolpidem Tartrate (Ambien) 5 mg PO HS PRN PRN Reason: Insomnia Stop: 01/07/17 01:11 Last Admin: 11/15/16 00:31 Dose: 5 mg General: demented HEENT: NC/AT, PERRLA, EOMI Neck: Supple, No JVD Lungs: CTAB Cardiovascular: RRR, Normal S1, Normal S2, without murmur Abdomen: soft, non-tender, positive bowel sound Extremities: contracture Neurological: no change, disorganized - Procedures Procedures: Procedures Procedure Code Date OTHER GROUP THERAPY 94.44 10/04/14 Internal Medicine Assmt/Plan - Assessment Assessment: PSYCHOSIS CKD DM2 MUSCLE WEAKNESS ENLARGED PROSTATE HYPERLIPIDEMIA - Plan Plan: cont on ada iss fall precaution nutritional support cpm labs noted dw rn Nutritional Asmnt/Malnutr-PDOC - Dietary Evaluation Malnutrition Findings (Please click <Entered> for more info): Nutritional Asmnt/Malnutrition Start: 11/12/16 11: 54 Text: Status: Complete Freq: Document 11/12/16 11:54 GSUN (Rec: 11/12/16 12:13 [email or web address] [email or web address]) Nutritional Asmnt/Malnutrition Patient General Information Nutritional Screening Moderate Risk Screening Diagnosis Psychosis, dementia, HTN, COPD , glaucoma, osteoarthritis Pertinent Medical Hx/Surgical Hx CKD, muscle weakness, dysphagia, anlarged prostate, DM type 2, hyperlipidemia Subjective Information 76 year old male from SNF. Per RN notes, pt is confused. Pt was soundly asleep during visit, woke up to RD's call however went straight back to sleep. [place] up to mouth, unable to completep hysical assessment. CBW 123.3lb via bedscale. Spoke to CNAs, CNAs stated pt has been sleeping this morning, tolerated ~75% of meals yesterday, requires assistant press operator offset with meals, may be aggressive when woken up. Avg PO intake ~50% of meals since adm, meeting 61% lower end kcal needs. Current Diet Order/ Nutrition Support Pureed, CCHO, SLADE Pertinent Medications Colace, Pepcid, Lasix, Novolog , Levemir, MOM, Metamucil, Seroquel, Senna, Fleet Enema Pertinent Labs 11/07: glucose 133H, creatiine 1.4H, BUN 33H POC glucose 93-234 since adm Nutritional Hx/Data Height 1.63 m Height (Calculated Centimeters) 162.6 Current Weight (lbs) 55.928 kg Weight (Calculated Kilograms) 55.9 Weight (Calculated Grams) 65364.9 [place] Body Weight 130 Weight Status Approriate GI Symptoms Usual diet at home [facility]: puretasha, CCHO, SLADE Skin Integrity/Comment: Ugo 16. Coccyx erythema. Current %PO Fair (50-74%) Estimated Nutritional Goals BEE in Kcals: Using Current wt Calories/Kcals/Kg CBW 123.3lb/56kg Kcals Calculated 1400-1680kcal (25-30kcal/kg) Protein: Using Current wt Protein Calculated 56g (1g/kg) Fluid: ml 1400-1680ml (1ml/kcal) Nutritional Problem 1. 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 Continue with current diet order. Avg PO intake is inadequate, encourage PO intake, assist as needed. 2. Recommend Boost Glucose Control QD. Expected Outcomes/Goals Expected Outcomes/Goals 1. PO intake to meet at least 75% of estimated nutritional needs.
[2016-11-17] MEDS: INSULIN ASPART SLIDING SCALE 100 UNITS/ML UNIT SUBQ SCH ×4 (06:48→20:16)
[2016-11-17] MEDS: Aspirin 325 mg EC PO SCH (10:13)
[2016-11-17] MEDS: Insulin Detemir 100 units/mL 10mL Vial SUBQ SCH (10:19)
[2016-11-17] MEDS: Multivitamin w/ Minerals Tab PO SCH (10:20)
--- NOTE | 2016-11-17 12:25 | Internal Medicine Prog Note ---
Internal Medicine Subjective - Subjective Patient seen and examined:: with staff, chart reviewed Patient is:: asleep, non-verbal, non-interactive, eyes closed, in bed, confused Per staff patient has:: no adverse event, no episodes of fall, noncompliant, confused Internal Medicine Objective - Results Result Diagrams: 11/07/16 22:13 11/07/16 22:13 Recent Labs: Laboratory Last Values WBC 9.9 Th/cmm (4.8-10.8) 11/07/16 22:13 RBC 4.56 Mil/cmm (3.80-5.80) 11/07/16 22:13 Hgb 12.8 gm/dL (12.6-17.4) 11/07/16 22:13 Hct 38.3 % (39.0-49.0) L 11/07/16 22:13 MCV 84.1 fl (80-99) 11/07/16 22:13 MCH 28.1 pg (27.0-31.0) 11/07/16 22:13 MCHC Differential 33.5 pg (28.0-36.0) 11/07/16 22:13 RDW 13.0 % (11.5-20.0) 11/07/16 22:13 Plt Count 224 Th/cmm (150-400) D 11/07/16 22:13 MPV 8.4 fl 11/07/16 22:13 Neutrophils % 76.7 % (40.0-80.0) 11/07/16 22:13 Lymphocytes % 16.1 % (20.0-50.0) L 11/07/16 22:13 Monocytes % 3.4 % (2.0-10.0) 11/07/16 22:13 Eosinophils % 2.2 % (0.0-5.0) 11/07/16 22:13 Basophils % 1.6 % (0.0-2.0) 11/07/16 22:13 Sodium 136 mEq/L (136-145) 11/07/16 22:13 Potassium 4.1 mEq/L (3.5-5.1) 11/07/16 22:13 Chloride 104 mEq/L (98-107) 11/07/16 22:13 Carbon Dioxide 24.7 mEq/L (21.0-31.0) 11/07/16 22:13 Anion Gap 11.4 (7.0-16.0) 11/07/16 22:13 BUN 33 mg/dL (7-25) H 11/07/16 22:13 Creatinine 1.4 mg/dL (0.7-1.3) H 11/07/16 22:13 Est GFR ( Amer) TNP 11/07/16 22:13 Est GFR (Non-Af Amer) TNP 11/07/16 22:13 BUN/Creatinine Ratio 23.6 11/07/16 22:13 Glucose 133 mg/dL (70-105) H 11/07/16 22:13 POC Glucose 121 MG/DL (70 - 105) H 11/16/16 06:28 Calcium 9.7 mg/dL (8.6-10.3) 11/07/16 22:13 Total Bilirubin 0.3 mg/dL (0.3-1.0) 11/07/16 22:13 AST 18 U/L (13-39) 11/07/16 22:13 ALT 16 U/L (7-52) 11/07/16 22:13 Alkaline Phosphatase 83 U/L (34-104) 11/07/16 22:13 Total Protein 7.8 gm/dL (6.0-8.3) 11/07/16 22:13 Albumin 3.9 gm/dL (4.2-5.5) L 11/07/16 22:13 Globulin 3.9 gm/dL 11/07/16 22:13 Albumin/Globulin Ratio 1.0 (1.0-1.8) 11/07/16 22:13 Triglycerides 174 mg/dL (<150) H 11/07/16 22:13 Cholesterol 125 mg/dL (<200) 11/07/16 22:13 LDL Cholesterol Direct 67 mg/dL (75-193) L 11/07/16 22:13 HDL Cholesterol 36 mg/dL (23-92) 11/07/16 22:13 TSH 1.54 uIU/ml (0.34-5.60) 11/07/16 22:13 RPR NONREACTIVE (NONREACTIVE) 11/07/16 22:13 - Physical Exam Vitals and I&O: Vital Signs Temp 97.3 F 11/17/16 06:28 Pulse 59 11/17/16 10:21 Resp 20 11/17/16 06:28 BP 136/69 11/17/16 10:19 Pulse Ox 97 11/17/16 06:28 Intake & Output 11/16/16 11/17/16 11/17/16 18:59 06:59 18:59 Intake Total 1919 Balance 1919 Intake: Oral 1919 Other: # Voids 3 # Bowel Movements 0 Active Medications: Current Medications Acetaminophen (Tylenol) 650 mg PO Q4HR PRN PRN Reason: Pain or Fever >101 Stop: 01/07/17 01:13 Amiodarone HCl (Cordarone) 200 mg PO BID [facility] Stop: 01/12/17 16:59 Last Admin: 11/17/16 10:21 Dose: Not Given Aspirin (Ecotrin) 325 mg PO DAILY [facility] Stop: 01/07/17 08:59 Last Admin: 11/17/16 10:13 Dose: 325 mg Bisacodyl (Dulcolax 10 Mg Supp) 10 mg RC DAILY PRN PRN Reason: Constipation Stop: 01/07/17 08:59 Docusate Sodium (Colace) 100 mg PO DAILY [facility] Stop: 01/07/17 08:59 Last Admin: 11/17/16 10:13 Dose: Not Given Famotidine (Pepcid) 20 mg PO DAILY [facility] Stop: 01/07/17 08:59 Last Admin: 11/17/16 10:19 Dose: 20 mg Furosemide (Lasix) 20 mg PO DAILY [facility] Stop: 01/15/17 08:59 Last Admin: 11/17/16 10:19 Dose: 20 mg Insulin Aspart (Novolog Insulin Sliding Scale) 0 units SUBQ ACHS [facility] PRN Reason: Protocol Stop: 01/07/17 07:29 Last Admin: 11/17/16 06:48 Dose: Not Given Insulin Detemir (Levemir Insulin) 8 units SUBQ DAILY [facility] Stop: 01/07/17 08:59 Last Admin: 11/17/16 10:19 Dose: 8 unit Latanoprost (Xalatan 0.005% Ophth Soln) 1 drop EACH EYE HS [facility] Stop: 01/07/17 20:59 Last Admin: 11/16/16 20:40 Dose: 1 drop Lorazepam (Ativan) 0.5 mg PO Q8HR PRN; Protocol PRN Reason: Agitation/ anxiety Stop: 01/07/17 01:13 Last Admin: 11/15/16 00:31 Dose: 0.5 mg Magnesium Hydroxide (Milk Of Magnesia) 30 ml PO DAILY PRN PRN Reason: Constipation Stop: 01/07/17 01:13 Psyllium Hydrophilic Mucilloid (Metamucil) 1 pkt PO BID [facility] Stop: 01/07/17 08:59 Last Admin: 11/17/16 10:21 Dose: Not Given Quetiapine Fumarate (Seroquel) 25 mg PO HS [facility] PRN Reason: Protocol Stop: 01/08/17 20:59 Last Admin: 11/16/16 20:38 Dose: 25 mg Senna (Senna) 8.6 mg PO DAILY [facility] Stop: 01/07/17 08:59 Last Admin: 11/17/16 10:21 Dose: 8.6 mg Sodium Phosphate (Fleet Enema) 135 ml RC Q48H PRN PRN Reason: Constipation Stop: 01/07/17 01:13 Zolpidem Tartrate (Ambien) 5 mg PO HS PRN PRN Reason: Insomnia Stop: 01/07/17 01:11 Last Admin: 11/15/16 00:31 Dose: 5 mg General: demented HEENT: NC/AT, PERRLA, EOMI Neck: Supple, No JVD Lungs: CTAB Cardiovascular: RRR, Normal S1, Normal S2, without murmur Abdomen: soft, non-tender, positive bowel sound Extremities: contracture Neurological: no change, disorganized - Procedures Procedures: Procedures Procedure Code Date OTHER GROUP THERAPY 94.44 10/04/14 Internal Medicine Assmt/Plan - Assessment Assessment: PSYCHOSIS CKD DM2 MUSCLE WEAKNESS ENLARGED PROSTATE HYPERLIPIDEMIA - Plan Plan: cont on ada iss fall precaution nutritional support cpm labs noted dw rn Nutritional Asmnt/Malnutr-PDOC - Dietary Evaluation Malnutrition Findings (Please click <Entered> for more info): Nutritional Asmnt/Malnutrition Start: 11/12/16 11: 54 Text: Status: Complete Freq: Document 11/12/16 11:54 GSUN (Rec: 11/12/16 12:13 [email or web address] [email or web address]) Nutritional Asmnt/Malnutrition Patient General Information Nutritional Screening Moderate Risk Screening Diagnosis Psychosis, dementia, HTN, COPD , glaucoma, osteoarthritis Pertinent Medical Hx/Surgical Hx CKD, muscle weakness, dysphagia, anlarged prostate, DM type 2, hyperlipidemia Subjective Information 76 year old male from SNF. Per RN notes, pt is confused. Pt was soundly asleep during visit, woke up to RD's call however went straight back to sleep. [place] up to mouth, unable to completep hysical assessment. CBW 123.3lb via bedscale. Spoke to CNAs, CNAs stated pt has been sleeping this morning, tolerated ~75% of meals yesterday, requires assistant vice president with meals, may be aggressive when woken up. Avg PO intake ~50% of meals since adm, meeting 61% lower end kcal needs. Current Diet Order/ Nutrition Support Pureed, CCHO, SLADE Pertinent Medications Colace, Pepcid, Lasix, Novolog , Levemir, MOM, Metamucil, Seroquel, Senna, Fleet Enema Pertinent Labs 11/07: glucose 133H, creatiine 1.4H, BUN 33H POC glucose 93-234 since adm Nutritional Hx/Data Height 1.63 m Height (Calculated Centimeters) 162.6 Current Weight (lbs) 55.928 kg Weight (Calculated Kilograms) 55.9 Weight (Calculated Grams) 23273.9 [place] Body Weight 130 Weight Status Approriate GI Symptoms Usual diet at home [place] [facility]: puretasha, [facility], [facility] Skin Integrity/Comment: Ugo 16. Coccyx erythema. Current %PO Fair (50-74%) Estimated Nutritional Goals BEE in Kcals: Using Current wt Calories/Kcals/Kg CBW 123.3lb/56kg Kcals Calculated 1400-1680kcal (25-30kcal/kg) Protein: Using Current wt Protein Calculated 56g (1g/kg) Fluid: ml 1400-1680ml (1ml/kcal) Nutritional Problem 1. 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 Continue with current diet order. Avg PO intake is inadequate, encourage PO intake, assist as needed. 2. Recommend Boost Glucose Control QD. Expected Outcomes/Goals Expected Outcomes/Goals 1. PO intake to meet at least 75% of estimated nutritional needs.
--- NOTE | 2016-11-17 22:33 | Progress Notes ---
DATE: 11/17/2016 SUBJECTIVE: Staff was spoken to. The patient is interviewed. Mood is noted be less irritable. Affect is appropriate. The patient is isolative and withdrawn. Insight and judgment noted to be improving. Impulse control seemed to be fair. No side effects to the medications are noted. The patient has been able to tolerate the Seroquel at this time. ASSESSMENT: The patient's impulsivity is resolving. The patient, however, continues to be cognitively compromised. PLAN: To continue the patient with supportive therapy and followup. JOB# [id number]
--- NOTE | 2016-11-18 02:36 | Progress Notes ---
DATE: 11/16/2016 PSYCHIATRIC PROGRESS NOTE SUBJECTIVE: Staff was spoken to. The patient is interviewed. Mood is irritable. Affect is constricted. The patient's coping skills are noted to be still poor. The patient has been trying to get out of her bed today. The patient has no idea that he cannot walk. The patient is getting easily frustrated, started to curse people out. ASSESSMENT: The patient is still paranoid and impulsive today. PLAN: To continue the patient with Seroquel. I encouraged the patient to verbalize the concerns rather than to act out. JOB# [id number]
[2016-11-18] MEDS: INSULIN ASPART SLIDING SCALE 100 UNITS/ML UNIT SUBQ SCH ×4 (06:32→16:12)
[2016-11-18] MEDS: Aspirin 325 mg EC PO SCH (09:12)
[2016-11-18] MEDS: Multivitamin w/ Minerals Tab PO SCH (09:12)
[2016-11-18] MEDS: Insulin Detemir 100 units/mL 10mL Vial SUBQ SCH (10:22)
--- NOTE | 2016-11-18 13:25 | Internal Medicine Prog Note ---
Internal Medicine Subjective - Subjective Patient seen and examined:: with staff, chart reviewed Patient is:: asleep, non-verbal, non-interactive, eyes closed, in bed, confused Per staff patient has:: no adverse event, no episodes of fall, noncompliant, confused Internal Medicine Objective - Results Result Diagrams: 11/07/16 22:13 11/07/16 22:13 Recent Labs: Laboratory Last Values WBC 9.9 Th/cmm (4.8-10.8) 11/07/16 22:13 RBC 4.56 Mil/cmm (3.80-5.80) 11/07/16 22:13 Hgb 12.8 gm/dL (12.6-17.4) 11/07/16 22:13 Hct 38.3 % (39.0-49.0) L 11/07/16 22:13 MCV 84.1 fl (80-99) 11/07/16 22:13 MCH 28.1 pg (27.0-31.0) 11/07/16 22:13 MCHC Differential 33.5 pg (28.0-36.0) 11/07/16 22:13 RDW 13.0 % (11.5-20.0) 11/07/16 22:13 Plt Count 224 Th/cmm (150-400) D 11/07/16 22:13 MPV 8.4 fl 11/07/16 22:13 Neutrophils % 76.7 % (40.0-80.0) 11/07/16 22:13 Lymphocytes % 16.1 % (20.0-50.0) L 11/07/16 22:13 Monocytes % 3.4 % (2.0-10.0) 11/07/16 22:13 Eosinophils % 2.2 % (0.0-5.0) 11/07/16 22:13 Basophils % 1.6 % (0.0-2.0) 11/07/16 22:13 Sodium 136 mEq/L (136-145) 11/07/16 22:13 Potassium 4.1 mEq/L (3.5-5.1) 11/07/16 22:13 Chloride 104 mEq/L (98-107) 11/07/16 22:13 Carbon Dioxide 24.7 mEq/L (21.0-31.0) 11/07/16 22:13 Anion Gap 11.4 (7.0-16.0) 11/07/16 22:13 BUN 33 mg/dL (7-25) H 11/07/16 22:13 Creatinine 1.4 mg/dL (0.7-1.3) H 11/07/16 22:13 Est GFR ( Amer) TNP 11/07/16 22:13 Est GFR (Non-Af Amer) TNP 11/07/16 22:13 BUN/Creatinine Ratio 23.6 11/07/16 22:13 Glucose 133 mg/dL (70-105) H 11/07/16 22:13 POC Glucose 147 MG/DL (70 - 105) H 11/18/16 11:50 Calcium 9.7 mg/dL (8.6-10.3) 11/07/16 22:13 Total Bilirubin 0.3 mg/dL (0.3-1.0) 11/07/16 22:13 AST 18 U/L (13-39) 11/07/16 22:13 ALT 16 U/L (7-52) 11/07/16 22:13 Alkaline Phosphatase 83 U/L (34-104) 11/07/16 22:13 Total Protein 7.8 gm/dL (6.0-8.3) 11/07/16 22:13 Albumin 3.9 gm/dL (4.2-5.5) L 11/07/16 22:13 Globulin 3.9 gm/dL 11/07/16 22:13 Albumin/Globulin Ratio 1.0 (1.0-1.8) 11/07/16 22:13 Triglycerides 174 mg/dL (<150) H 11/07/16 22:13 Cholesterol 125 mg/dL (<200) 11/07/16 22:13 LDL Cholesterol Direct 67 mg/dL (75-193) L 11/07/16 22:13 HDL Cholesterol 36 mg/dL (23-92) 11/07/16 22:13 TSH 1.54 uIU/ml (0.34-5.60) 11/07/16 22:13 RPR NONREACTIVE (NONREACTIVE) 11/07/16 22:13 - Physical Exam Vitals and I&O: Vital Signs Temp 98.4 F 11/18/16 07:00 Pulse 93 11/18/16 09:12 Resp 20 11/18/16 07:00 BP 156/63 11/18/16 09:10 Pulse Ox 99 11/18/16 07:00 Intake & Output 11/17/16 11/18/16 11/18/16 18:59 06:59 18:59 Intake Total 60 Balance 60 Intake: Oral 60 Other: # Voids 2 3 # Bowel Movements 1 0 Active Medications: Current Medications Acetaminophen (Tylenol) 650 mg PO Q4HR PRN PRN Reason: Pain or Fever >101 Stop: 01/07/17 01:13 Amiodarone HCl (Cordarone) 200 mg PO BID [facility] Stop: 01/12/17 16:59 Last Admin: 11/18/16 09:12 Dose: 200 mg Aspirin (Ecotrin) 325 mg PO DAILY [facility] Stop: 01/07/17 08:59 Last Admin: 11/18/16 09:12 Dose: 325 mg Bisacodyl (Dulcolax 10 Mg Supp) 10 mg RC DAILY PRN PRN Reason: Constipation Stop: 01/07/17 08:59 Docusate Sodium (Colace) 100 mg PO DAILY [facility] Stop: 01/07/17 08:59 Last Admin: 11/18/16 09:10 Dose: 100 mg Famotidine (Pepcid) 20 mg PO DAILY [facility] Stop: 01/07/17 08:59 Last Admin: 11/18/16 09:12 Dose: 20 mg Furosemide (Lasix) 20 mg PO DAILY [facility] Stop: 01/15/17 08:59 Last Admin: 11/18/16 09:10 Dose: 20 mg Insulin Aspart (Novolog Insulin Sliding Scale) 0 units SUBQ ACHS [facility]OLAN PRN Reason: Protocol Stop: 01/07/17 07:29 Last Admin: 11/18/16 06:32 Dose: 2 units Insulin Detemir (Levemir Insulin) 8 units SUBQ DAILY [facility] Stop: 01/07/17 08:59 Last Admin: 11/18/16 10:22 Dose: 8 unit Latanoprost (Xalatan 0.005% Ophth Soln) 1 drop EACH EYE HS [facility] Stop: 01/07/17 20:59 Last Admin: 11/17/16 20:16 Dose: 1 drop Lorazepam (Ativan) 0.5 mg PO Q8HR PRN; Protocol PRN Reason: Agitation/ anxiety Stop: 01/07/17 01:13 Last Admin: 11/18/16 00:12 Dose: 0.5 mg Magnesium Hydroxide (Milk Of Magnesia) 30 ml PO DAILY PRN PRN Reason: Constipation Stop: 01/07/17 01:13 Psyllium Hydrophilic Mucilloid (Metamucil) 1 pkt PO BID NOLAN Stop: 01/07/17 08:59 Last Admin: 11/18/16 09:13 Dose: 1 pkt Quetiapine Fumarate (Seroquel) 25 mg PO HS NOLAN PRN Reason: Protocol Stop: 01/08/17 20:59 Last Admin: 11/17/16 20:16 Dose: 25 mg Senna (Senna) 8.6 mg PO DAILY [facility] Stop: 01/07/17 08:59 Last Admin: 11/18/16 09:13 Dose: 8.6 mg Sodium Phosphate (Fleet Enema) 135 ml RC Q48H PRN PRN Reason: Constipation Stop: 01/07/17 01:13 Zolpidem Tartrate (Ambien) 5 mg PO HS PRN PRN Reason: Insomnia Stop: 01/07/17 01:11 Last Admin: 11/15/16 00:31 Dose: 5 mg General: demented HEENT: NC/AT, PERRLA, EOMI Neck: Supple, No JVD Lungs: CTAB Cardiovascular: RRR, Normal S1, Normal S2, without murmur Abdomen: soft, non-tender, positive bowel sound Extremities: contracture Neurological: no change, disorganized - Procedures Procedures: Procedures Procedure Code Date OTHER GROUP THERAPY 94.44 10/04/14 Internal Medicine Assmt/Plan - Assessment Assessment: PSYCHOSIS CKD DM2 MUSCLE WEAKNESS ENLARGED PROSTATE HYPERLIPIDEMIA - Plan Plan: cont on ada iss fall precaution nutritional support cpm labs noted dw rn Nutritional Asmnt/Malnutr-PDOC - Dietary Evaluation Malnutrition Findings (Please click <Entered> for more info): Nutritional Asmnt/Malnutrition Start: 11/12/16 11: 54 Text: Status: Complete Freq: Document 11/12/16 11:54 GSUN (Rec: 11/12/16 12:13 GSUN [id number]) Nutritional Asmnt/Malnutrition Patient General Information Nutritional Screening Moderate Risk Screening Diagnosis Psychosis, dementia, HTN, COPD , glaucoma, osteoarthritis Pertinent Medical Hx/Surgical Hx CKD, muscle weakness, dysphagia, anlarged prostate, DM type 2, hyperlipidemia Subjective Information 76 year old male from SNF. Per RN notes, pt is confused. Pt was soundly asleep during visit, woke up to RD's call however went straight back to sleep. [place] up to mouth, unable to completep hysical assessment. CBW 123.3lb via bedscale. Spoke to CNAs, CNAs stated pt has been sleeping this morning, tolerated ~75% of meals yesterday, requires housekeeping assistant with meals, may be aggressive when woken up. Avg PO intake ~50% of meals since adm, meeting 61% lower end kcal needs. Current Diet Order/ Nutrition Support Pureed, CCHO, [facility] Pertinent Medications Colace, Pepcid, Lasix, Novolog , Levemir, MOM, Metamucil, Seroquel, Senna, Fleet Enema Pertinent Labs 11/07: glucose 133H, creatiine 1.4H, BUN 33H POC glucose 93-234 since adm Nutritional Hx/Data Height 1.63 m Height (Calculated Centimeters) 162.6 Current Weight (lbs) 55.928 kg Weight (Calculated Kilograms) 55.9 Weight (Calculated Grams) 39940.9 [place] Body Weight 130 Weight Status Approriate GI Symptoms Usual diet at home [facility]: puretasha, CCHO, [facility] Skin Integrity/Comment: Ugo 16. Coccyx erythema. Current %PO Fair (50-74%) Estimated Nutritional Goals BEE in Kcals: Using Current wt Calories/Kcals/Kg CBW 123.3lb/56kg Kcals Calculated 1400-1680kcal (25-30kcal/kg) Protein: Using Current wt Protein Calculated 56g (1g/kg) Fluid: ml 1400-1680ml (1ml/kcal) Nutritional Problem 1. Problem Problem Inadequate oral food beverage intake related to Etiology unknown, liekly lethargy, likely confusion aeb Signs/Symptoms: SKEIN WASHER reported, avg PO itnake meeting 61% lower end kcal needs Intervention/Recommendation Comments 1. Continue with current diet order. Avg PO intake is inadequate, encourage PO intake, assist as needed. 2. Recommend Boost Glucose Control QD. Expected Outcomes/Goals Expected Outcomes/Goals 1. PO intake to meet at least 75% of estimated nutritional needs.
--- NOTE | 2016-11-19 02:56 | Progress Notes ---
DATE: 11/18/2016 PSYCHIATRIC PROGRESS NOTE SUBJECTIVE: Staff was spoken to. The patient is interviewed. Mood is noted to be anxious. Affect is appropriate. The patient's insight and judgment are improving. Impulse control seems to be fair. No side effects to the medication are noted. The patient is currently on Seroquel 25 mg at bedtime. No side effects to medications are noted. ASSESSMENT: The patient is stabilizing. PLAN: To continue the patient with the supportive therapy and discharge the patient today for followup on outpatient basis. JOB# [id number]
== END 2016-11-18 17:15 | disposition home or self-care (01) | DRG 57 ==
LOC: ER 21:59 → GERO 23:15
PROVIDERS: ADMIT Psychiatry & Neurology Psychiatry; ATTEND Psychiatry & Neurology Psychiatry
DX: G30.9 Alzheimer's disease, unspecified (principal); F02.81 Dementia in other diseases classified elsewhere, unspecified severity, with behavioral disturbance; E11.22 Type 2 diabetes mellitus with diabetic chronic kidney disease; G81.10 Spastic hemiplegia affecting unspecified side; F29 Unspecified psychosis not due to a substance or known physiological condition; E78.5 Hyperlipidemia, unspecified; J44.9 Chronic obstructive pulmonary disease, unspecified; M19.90 Unspecified osteoarthritis, unspecified site; H40.9 Unspecified glaucoma; I12.9 Hypertensive chronic kidney disease with stage 1 through stage 4 chronic kidney disease, or unspecified chronic kidney disease; N18.9 Chronic kidney disease, unspecified; K21.9 Gastro-esophageal reflux disease without esophagitis; N40.0 Benign prostatic hyperplasia without lower urinary tract symptoms; R13.10 Dysphagia, unspecified; M62.81 Muscle weakness (generalized); Z91.19 Patient's noncompliance with other medical treatment and regimen; Z87.11 Personal history of peptic ulcer disease; Z87.440 Personal history of urinary (tract) infections; Z89.611 Acquired absence of right leg above knee; Z87.01 Personal history of pneumonia (recurrent)
CPT/HCPCS: 36415-UA; 80053-TC; 80061-TC; 82948-90; 84443-TC; 85025-TC; 86592-TC; 93005; J1815; Z7610